=== PATIENT | female | born 1990 | race African-American/Black ===

== ENCOUNTER 2016-12-06 06:19 | Emergency (ER) | payer OTHER ==
[~2016-12-06] VITALS: Ht 162.6 cm; Wt 67.1 kg
[~2016-12-06 06:19] MED LIST: CIPR500T94 PO; METR500T PO
--- NOTE | 2016-12-06 06:38 | PHYS DOC ---
Past Medical History Past Medical History: No Pertinent History Past Surgical History: Additional Past Surgical Histo: x3 c-sections Alcohol Use: None Drug Use: None Adult General Chief Complaint Chief Complaint: ABDOMINAL PAIN HPI HPI Patient is a 26 year old F who presents with symptoms of UTI. Patient states she's had increased urgency to go the bathroom and lower back pain that has progressively gotten worse since Sunday. Patient states this feels like previous UTIs. Patient states low-grade fevers at home however never took her temperature. Patient denies any other symptoms. Patient has no other complaints. Review of Systems Review of Systems GEN: Denies fevers, chills, sweats HEENT: Denies blurred vision, sore throat CV: Denies chest pain RESP: Denies shortness of air, cough GI: Denies n/v/d : Increased urinary frequency with lower back pain NEURO: Denies confusion, dizziness MSK: Denies weakness, joint pain/swelling Current Medications Current Medications Current Medications Medications (Trade) Dose Ordered Sig/Crissy Start Time Stop Time Status Last Admin Dose Admin Ceftriaxone Sodium 50 ml @ 100 mls/hr 1X ONCE 12/06/16 07:30 12/06/16 07:59 DC Ondansetron HCl (Zofran) 4 mg 1X ONCE 12/06/16 07:15 12/06/16 07:16 DC 12/06/16 06:55 4 MG Sodium Chloride 1,000 ml @ 1,000 mls/hr 1X ONCE 12/06/16 07:00 12/06/16 07:59 DC 12/06/16 06:48 1,000 MLS/HR Allergies Allergies Allergies Coded Allergies Type Severity Reaction Last Updated Verified No Known Drug Allergies 12/28/13 No Physical Exam Physical Exam GEN.: No apparent distress. Alert and oriented. HEENT: Head is normocephalic, atraumatic NECK: Supple. LUNGS: CTAB. HEART: RRR, S1, S2 present. Peripheral pulses intact ABDOMEN: Soft, nontender. Positive bowel sounds. EXTREMITIES: Without any cyanosis. NEUROLOGIC: Normal speech, normal tone PSYCHIATRIC: Normal affect, normal mood. SKIN: No ulcerations BACK: Mild left CVA tenderness Current Patient Data Vital Signs Vital Signs Date Time Temp Pulse Resp B/P (MAP) Pulse Ox O2 Delivery O2 Flow Rate FiO2 12/06/16 07:37 104 18 108/65 (79) 98 Room Air 12/06/16 06:27 100.1 100.1 Lab Values Laboratory Tests Test 12/06/16 05:38 12/06/16 06:25 12/06/16 07:15 POC Urine HCG, Qualitative Hcg negative (Negative) Urine Collection Type Unknown Urine Color Yellow Urine Clarity Cloudy Urine pH 7.0 Urine Specific [place] 1.015 Urine Protein 100 mg/dL (NEG-TRACE) Urine Glucose (UA) Negative mg/dL (NEG) Urine Ketones (Stick) Negative mg/dL (NEG) Urine Blood Large (NEG) Urine Nitrite Positive (NEG) Urine Bilirubin Negative (NEG) Urine Urobilinogen Dipstick 0.2 mg/dL (0.2 mg/dL) Urine Leukocyte Esterase Large (NEG) Urine RBC 3-5 /HPF (0-2) Urine WBC Tntc /HPF (0-4) Urine Squamous Epithelial Cells Few /LPF Urine Bacteria Many /HPF (0-FEW) White Blood Count 12.2 x10^3/uL (4.0-11.0) H Red Blood Count 3.93 x10^6/uL (3.50-5.40) Hemoglobin 11.5 g/dL (12.0-15.5) L Hematocrit 34.1 % (36.0-47.0) L Mean Corpuscular Volume 87 fL (79-100) Mean Corpuscular Hemoglobin 29 pg (25-35) Mean Corpuscular Hemoglobin Concent 34 g/dL (31-37) Red Cell Distribution Width 12.7 % (11.5-14.5) Platelet Count 298 x10^3/uL (140-400) Neutrophils (%) (Auto) 83 % (31-73) H Lymphocytes (%) (Auto) 10 % (24-48) L Monocytes (%) (Auto) 7 % (0-9) Eosinophils (%) (Auto) 0 % (0-3) Basophils (%) (Auto) 0 % (0-3) Neutrophils # (Auto) 10.1 x10^3uL (1.8-7.7) H Lymphocytes # (Auto) 1.2 x10^3/uL (1.0-4.8) Monocytes # (Auto) 0.8 x10^3/uL (0.0-1.1) Eosinophils # (Auto) 0.1 x10^3/uL (0.0-0.7) Basophils # (Auto) 0.0 x10^3/uL (0.0-0.2) Sodium Level 142 mmol/L (136-145) Potassium Level 3.5 mmol/L (3.5-5.1) Chloride Level 108 mmol/L (98-107) H Carbon Dioxide Level 25 mmol/L (21-32) Anion Gap 9 (6-14) Blood Urea Nitrogen 7 mg/dL (7-20) Creatinine 0.7 mg/dL (0.6-1.0) Estimated GFR (Cockcroft-Gault) 123.4 Glucose Level 104 mg/dL (70-99) H Calcium Level 7.9 mg/dL (8.5-10.1) L Laboratory Tests 12/06/16 07:15 Laboratory Tests 12/06/16 07:15 EKG EKG [] Radiology/Procedures Radiology/Procedures [] Course & Med Decision Making Course & Med Decision Making Pertinent Labs and Imaging studies reviewed. (See chart for details) ED course: Patient was seen and examined emergency room CBC, BMP, UA, urine ordered 0801: Patient was updated on her UA results and plan to discharge home with oral antibiotics patient states she gets yeast infections and would like Diflucan MDM: After reviewing the chart, CC/HPI/PMH, physical exam, [lab results], I do not believe the patient has a severe bacterial infection warranting further workup and/or admission at this time. I believe the patient is stable for discharge with oral antibiotics and short-term follow-up with PCP for non-complicated UTI. Patient is comfortable going home. Additional verbal discharge instructions were provided to the patient and that if symptoms get worse or any new symptoms arise that are worrisome to the patient she is to return to the emergency room immediately [] Dragon Disclaimer Dragon Disclaimer This electronic medical record was generated, in whole or in part, using a voice recognition dictation system. Departure Departure Impression: Primary Impression: UTI (urinary tract infection) Disposition: 01 HOME, SELF-CARE Condition: IMPROVED Referrals: SHAWNA ARROYO MD (PCP) Patient Instructions: Urinary Tract Infection, Flrx-er-Yrbu Additional Instructions: Please follow up with your family physician next one to 2 days and return if symptoms increase Scripts Fluconazole (Diflucan) 100 Mg Tablet 100 MG FT 1X for 1 Day, #1 TAB Prov: DOUGIE LOZA DO 12/06/16 Cephalexin (KEFLEX) 500 Mg Capsule 1 CAP PO TID for 5 Days, #15 CAP Prov: DOUGIE LOZA DO 12/06/16 DOUGIE LOZA DO Dec 06, 2016 06:38
[2016-12-06] MEDS ORDERED: IV NORMAL SALINE 1000ML BAG 1,000 ML IV ONE (07:00)
[2016-12-06 07:12] LABS: BACTERIA,URINE MANY /HPF (0-FEW); BILIRUBIN,URINE NEGATIVE (NEG); GLUCOSE,URINE NEGATIVE (NEG); NITRITE,URINE POSITIVE (NEG); PROTEIN,URINE 100 mg/dL (NEG-TRACE); SQUAMOUS EPITHELIAL CELL,UR FEW /LPF; UROBILINOGEN,URINE 0.2 mg/dL (0.2 mg/dL); WBC,URINE TNTC /HPF (0-4)
[2016-12-06] MEDS ORDERED: ONDANSETRON PF 4 MG/2 ML VIAL. IV ONE (07:15)
[2016-12-06 07:45] LABS: CALCIUM 7.9 mg/dL (8.5-10.1); CREATININE 0.7 mg/dL (0.6-1.0); GFR 123.4; POTASSIUM 3.5 mmol/L (3.5-5.1)
[2016-12-06 07:51] LABS: BASO % 0 % (0-3); EOS % 0 % (0-3); HEMATOCRIT 34.1 % (36.0-47.0); HEMOGLOBIN 11.5 g/dL (12.0-15.5); LYMPH # 1.2 x10^3/uL (1.0-4.8); LYMPH % 10 % (24-48); MEAN CORPUSCULAR HEMOGLOBIN 29 pg (25-35); MEAN CORPUSCULAR HGB CONC 34 g/dL (31-37); MEAN CORPUSCULAR VOLUME 87 fL (79-100); MONO % 7 % (0-9); NEUT % 83 % (31-73); PLATELET COUNT 298 x10^3/uL (140-400); RED BLOOD COUNT 3.93 x10^6/uL (3.50-5.40); RED CELL DISTRIBUTION WIDTH 12.7 % (11.5-14.5); WHITE BLOOD COUNT 12.2 x10^3/uL (4.0-11.0)
[2016-12-06] MEDS ORDERED: FLUC100T FT (08:10)
[2016-12-06] MEDS ORDERED: CEPH-264 PO (08:10)
[2016-12-06 08:43] VITALS: BP 112/67
--- NOTE | 2016-12-10 07:33 | VNOTE ---
CALL BACK NOTE CALL BACK Microbiology 12/06/16 Urine Culture - Final, Complete 12/06/16 Urine Culture Result 1 (MORRIS) - Final, Complete 12/06/16 Antimicrobic Susceptibility - Final, Complete Urine culture positive for e. coli. Patient was placed on Keflex at discharge. According to the culture and sensitivity this infection is sensitive to Keflex. ADELINA MCMANUS APRN Dec 10, 2016 07:33
== END 2016-12-06 08:52 | disposition home or self-care (01) ==
LOC: ER 06:19
DX: N39.0 Urinary tract infection, site not specified (principal); Z87.440 Personal history of urinary (tract) infections
CPT/HCPCS: 36415; 80048; 81001; 81025; 85025; 87086; 87186; 96361; 96365; 96375; 99284; J0690; J2405; J7030

== ENCOUNTER 2017-02-18 17:50 | Emergency (ER) | payer OTHER ==
[~2017-02-18] VITALS: Ht 162.6 cm; Wt 67.1 kg
[~2017-02-18 17:50] MED LIST changes: +CEPH-264 PO; +FLUC100T FT
[2017-02-18 18:00] VITALS: BP 133/71
[2017-02-18 18:31] LABS: BILIRUBIN,URINE NEGATIVE (NEG); GLUCOSE,URINE NEGATIVE (NEG); NITRITE,URINE POSITIVE (NEG); PROTEIN,URINE NEGATIVE (NEG-TRACE); UROBILINOGEN,URINE 0.2 mg/dL (0.2 mg/dL)
--- NOTE | 2017-02-18 18:40 | PHYS DOC ---
Past Medical History Past Medical History: No Pertinent History Past Surgical History: Additional Past Surgical Histo: x3 c-sections Alcohol Use: None Drug Use: None Adult General Chief Complaint Chief Complaint: ABDOMINAL PAIN [facility] HPI Patient is a pleasant sexually active 26-year-old female with a 003 presents today with UTI symptoms admitted crampy abdominal pain that began several months ago. She's been seen here in our emergency department for recurrent UTIs as well as by her primary PILOT SUBMERSIBLE. sHe presents again today for rapid lower abdominal pain with urgency frequency and dysuria. She had sexual transmitted diseases many years ago and is presently sexually active with using condoms and he believes that there is no relationship to her symptoms and sexual activity. Patient denies any vaginal trauma, rectal trauma, denies any fevers, chills, diarrhea, nausea and vomiting. 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 Patient's pain is intermittent and present only with urination. Review of Systems Review of Systems Constitutional: Denies fever or chills [] Eyes: Denies change in visual acuity, redness, or eye pain [] HENT: Denies nasal congestion or sore throat [] Respiratory: Denies cough or shortness of breath [] Cardiovascular: No additional information not addressed in HPI [] GI: Planes of lower abdominal pain without nausea vomiting diarrhea or loose stools denies any constipation :patient has dysuria urgency or frequency without hematuria Musculoskeletal: She has had mild lower back pain without joint pain[] Integument: Denies rash or skin lesions [] Neurologic: Denies headache, focal weakness or sensory changes [] Endocrine: Denies polyuria or polydipsia [] All other systems were reviewed and found to be within normal limits, except as documented in this note. Allergies Allergies Allergies Coded Allergies Type Severity Reaction Last Updated Verified No Known Drug Allergies 12/28/13 No Physical Exam Physical Exam Vital signs recorded on the chart within normal limits Constitutional: Well developed, well nourished, no acute distress, non-toxic appearance. [] Cardiovascular:Heart rate regular rhythm, no murmur [] Lungs & Thorax: Bilateral breath sounds clear to auscultation [] Abdomen: Bowel sounds normal, soft, no tenderness, no masses, no pulsatile masses. No guarding rebound or organomegaly specifically no Maldonado's or McBurney 's point tenderness palpation[] Back: No tenderness, no CVA tenderness. [] Neurologic: Alert and oriented X 3, Psychologic: Affect normal, judgement normal, mood normal. [] Current Patient Data Vital Signs Vital Signs Date Time Temp Pulse Resp B/P (MAP) Pulse Ox O2 Delivery O2 Flow Rate FiO2 02/18/17 18:00 98.6 87 20 133/71 (91) 99 Room Air 98.6 Lab Values Laboratory Tests Test 02/18/17 18:00 02/18/17 18:03 Urine Collection Type Unknown Urine Color Yellow Urine Clarity Cloudy Urine pH 7.0 Urine Specific [place] >=1.030 Urine Protein Negative mg/dL (NEG-TRACE) Urine Glucose (UA) Negative mg/dL (NEG) Urine Ketones (Stick) Negative mg/dL (NEG) Urine Blood Negative (NEG) Urine Nitrite Positive (NEG) Urine Bilirubin Negative (NEG) Urine Urobilinogen Dipstick 0.2 mg/dL (0.2 mg/dL) Urine Leukocyte Esterase Moderate (NEG) Urine RBC 0 /HPF (0-2) Urine WBC 5-10 /HPF (0-4) Urine Squamous Epithelial Cells Many /LPF Urine Bacteria Many /HPF (0-FEW) Urine Mucus Marked /LPF POC Urine HCG, Qualitative Hcg negative (Negative) EKG EKG [] Radiology/Procedures Radiology/Procedures [] Course & Med Decision Making Course & Med Decision Making Pertinent Labs and Imaging studies reviewed. (See chart for details) My abdominal pain differential includes but not limited to ectopic , UTI, pyonephritis, cholecystitis, cholelithiasis, pancreatitis, appendicitis, small bowel obstruction, large bowel obstruction, diverticulosis, Diverticulum, intussusception, volvulus, irritable bowel disease, Crohn's or ulcerative colitis, considered upon arrival She really has no abdominal pain on evaluation patient's urine test is negative, and urinalysis is clear for signs of inflammation and infection. []Patient's symptoms and history are concerning for recurrent UTI. Given patient 's prior C-sections and 3 pregnancies I believe there may be an anatomic abnormality causing a delay or partial obstruction to patient's urinary emptying. Patient would benefit from urogynecology evaluation for possible cystoscopy or chronic antibiotic therapy for chronic UTIs. At this point I'll provide her with a course of pain medications and a course of Macrobid and referral back PILOT SUBMERSIBLE. Dragon Disclaimer Dragon Disclaimer This electronic medical record was generated, in whole or in part, using a voice recognition dictation system. Departure Departure Impression: Primary Impression: UTI (urinary tract infection) Disposition: 01 HOME, SELF-CARE Condition: STABLE Referrals: SHAWNA ARROYO MD (PCP) Patient Instructions: Urinary Tract Infection Additional Instructions: discharge: I've spoken with the patient and/or caregivers. I've explained the patient's condition, diagnosis and treatment plan based on information available to me at this time. I've answered the patient's and/or caregivers questions and addressed any concerns. The patient and/or caregivers have a good understanding the patient's diagnosis, condition and treatment plan as can be expected at this point. Vital signs have been stabilized. The patient's condition is stable for discharge from the emergency department. The patient will pursue further outpatient evaluation with her primary care provider or other designated consulting physician as outlined in the discharge instructions. Patient and/or caregivers are agreeable to this plan of care and follow-up instructions have been explained in detail. The patient and/or caregivers have received these instructions in written format and expressed understanding of these discharge instructions. The patient and her caregivers are aware that if any significant change in condition or worsening of symptoms should prompt him to immediately return to this of the closest emergency department. If an emergent department is not readily available I would encourage him to call 911. Scripts Phenazopyridine Hcl (PYRIDIUM) 200 Mg Tablet 200 MG PO TID for 3 Days, #9 TAB Prov: MAI SAMPSON MD 02/18/17 Nitrofurantoin Monohyd/M-Cryst (MACROBID 100 MG CAPSULE) 100 Mg Capsule 1 CAP PO BID, #20 CAP Prov: MAI SAMPSON MD 02/18/17 Hydrocodone Bit/Acetaminophen (HYDROCODONE-APAP 5-325 ) 1 Each Tablet 1-2 TAB PO PRN Q6HRS Y for PAIN for 5 Days, #10 TAB 0 Refills Prov: MAI SAMPSON MD 02/18/17 MAI SAMPSON MD Feb 18, 2017 18:40
[2017-02-18 18:44] LABS: BACTERIA,URINE MANY /HPF (0-FEW); RBC,URINE 0 /HPF (0-2); SQUAMOUS EPITHELIAL CELL,UR MANY /LPF
[2017-02-18] MEDS ORDERED: NITR100C62 PO (18:52)
[2017-02-18] MEDS ORDERED: HYDR-2758 PO (18:52)
[2017-02-18] MEDS ORDERED: PHEN-318 PO (18:52)
== END 2017-02-18 19:04 | disposition home or self-care (01) ==
LOC: ER 17:50
DX: N39.0 Urinary tract infection, site not specified (principal)
CPT/HCPCS: 81001; 81025; 87086; 87186; 99284

== ENCOUNTER 2017-04-06 18:36 | Emergency (ER) | payer OTHER ==
[2017-04-06 19:50] LABS: ADD MAN DIFF? NO
[2017-04-06 19:52] LABS: BASO # 0.1 x10^3/uL (0.0-0.2); BASO % 1 % (0-3); EOS # 0.1 x10^3/uL (0.0-0.7); EOS % 2 % (0-3); HEMATOCRIT 41.3 % (36.0-47.0); HEMOGLOBIN 13.9 g/dL (12.0-15.5); LYMPH # 3.5 x10^3/uL (1.0-4.8); LYMPH % 36 % (24-48); MEAN CORPUSCULAR HEMOGLOBIN 30 pg (25-35); MEAN CORPUSCULAR HGB CONC 34 g/dL (31-37); MEAN CORPUSCULAR VOLUME 89 fL (79-100); MONO # 0.7 x10^3/uL (0.0-1.1); MONO % 7 % (0-9); NEUT # 5.3 x10^3uL (1.8-7.7); NEUT % 55 % (31-73); PLATELET COUNT 433 x10^3/uL (140-400); RED BLOOD COUNT 4.63 x10^6/uL (3.50-5.40); RED CELL DISTRIBUTION WIDTH 13.4 % (11.5-14.5); WHITE BLOOD COUNT 9.7 x10^3/uL (4.0-11.0)
== END 2017-04-06 22:01 | disposition home or self-care (01) ==
LOC: ER 18:36
DX: N99.820 Postprocedural hemorrhage of a genitourinary system organ or structure following a genitourinary system procedure (principal); Z98.890 Other specified postprocedural states
CPT/HCPCS: 36415; 76856; 84702; 85025; 99285-25

== ENCOUNTER 2017-08-07 09:41 | Emergency (ER) | payer SELFPAY, OTHER, BC ==
[2017-08-07 10:14] LABS: URINE HCG POC HCG NEGATIVE (Negative)
[2017-08-07 10:18] LABS: BILIRUBIN,URINE NEGATIVE (NEG); COLOR,URINE YELLOW; GLUCOSE,URINE NEGATIVE (NEG); NITRITE,URINE NEGATIVE (NEG); PROTEIN,URINE NEGATIVE (NEG-TRACE)
[2017-08-07 10:38] LABS: BACTERIA,URINE MOD /HPF (0-FEW); CLARITY,URINE HAZY; SQUAMOUS EPITHELIAL CELL,UR MOD /LPF
[2017-08-07 11:09] LABS: ADD MAN DIFF? NO
[2017-08-07 11:20] LABS: ANION GAP 10 (6-14); BLOOD UREA NITROGEN 13 mg/dL (7-20); BUN/CREATININE RATIO 16 (6-20); CALCIUM 8.9 mg/dL (8.5-10.1); CARBON DIOXIDE 26 mmol/L (21-32); CHLORIDE 103 mmol/L (98-107); CREATININE 0.8 mg/dL (0.6-1.0); GFR 104.9; GLUCOSE 92 mg/dL (70-99); POTASSIUM 3.8 mmol/L (3.5-5.1); SODIUM 139 mmol/L (136-145)
[2017-08-07 11:21] LABS: BASO % 1 % (0-3); EOS # 0.1 x10^3/uL (0.0-0.7); EOS % 1 % (0-3); HEMATOCRIT 37.5 % (36.0-47.0); LYMPH # 2.1 x10^3/uL (1.0-4.8); LYMPH % 28 % (24-48); MEAN CORPUSCULAR HEMOGLOBIN 30 pg (25-35); MEAN CORPUSCULAR HGB CONC 35 g/dL (31-37); MEAN CORPUSCULAR VOLUME 88 fL (79-100); MONO # 0.4 x10^3/uL (0.0-1.1); MONO % 6 % (0-9); NEUT # 4.9 x10^3uL (1.8-7.7); NEUT % 65 % (31-73); PLATELET COUNT 366 x10^3/uL (140-400); RED BLOOD COUNT 4.27 x10^6/uL (3.50-5.40); RED CELL DISTRIBUTION WIDTH 12.5 % (11.5-14.5); WHITE BLOOD COUNT 7.5 x10^3/uL (4.0-11.0)
[2017-08-07 11:26] LABS: ALBUMIN/GLOBULIN RATIO 0.9 (1.0-1.7); ALK PHOS 65 U/L (46-116); ALT (SGPT) 15 U/L (14-59); AST (SGOT) 13 U/L (15-37); TOTAL BILIRUBIN 0.7 mg/dL (0.2-1.0); TOTAL PROTEIN 8.4 g/dL (6.4-8.2)
[2017-08-07] MEDS: cefTRIAXone IM 250 MG VIAL IM (11:39)
[2017-08-08 17:18] LABS: CHLAMYDIA PROBE Negative (Negative); GC PROBE Negative (Negative)
== END 2017-08-07 12:49 | disposition home or self-care (01) ==
LOC: ER 09:41
DX: N72 Inflammatory disease of cervix uteri (principal); F17.210 Nicotine dependence, cigarettes, uncomplicated
CPT/HCPCS: 36415; 80053; 81001; 81025; 85025; 86900; 86901; 87491; 87591; 96372; 99284; J0696; Q0111

== ENCOUNTER 2017-10-13 14:06 | Emergency (ER) | payer BC ==
[2017-10-13 14:18] LABS: URINE HCG POC HCG NEGATIVE (Negative)
[2017-10-13 14:47] LABS: BILIRUBIN,URINE NEGATIVE (NEG); CLARITY,URINE CLEAR; GLUCOSE,URINE NEGATIVE (NEG); NITRITE,URINE NEGATIVE (NEG); PROTEIN,URINE NEGATIVE (NEG-TRACE); UROBILINOGEN,URINE 0.2 mg/dL (0.2 mg/dL)
[2017-10-13 14:48] LABS: ADD MAN DIFF? NO
[2017-10-13 14:49] LABS: BASO # 0.1 x10^3/uL (0.0-0.2); BASO % 1 % (0-3); EOS # 0.1 x10^3/uL (0.0-0.7); EOS % 1 % (0-3); HEMATOCRIT 36.7 % (36.0-47.0); HEMOGLOBIN 12.4 g/dL (12.0-15.5); LYMPH # 2.3 x10^3/uL (1.0-4.8); LYMPH % 35 % (24-48); MEAN CORPUSCULAR HEMOGLOBIN 30 pg (25-35); MEAN CORPUSCULAR HGB CONC 34 g/dL (31-37); MEAN CORPUSCULAR VOLUME 88 fL (79-100); MONO # 0.5 x10^3/uL (0.0-1.1); MONO % 7 % (0-9); NEUT # 3.6 x10^3uL (1.8-7.7); NEUT % 56 % (31-73); PLATELET COUNT 346 x10^3/uL (140-400); RED BLOOD COUNT 4.18 x10^6/uL (3.50-5.40); RED CELL DISTRIBUTION WIDTH 12.9 % (11.5-14.5); WHITE BLOOD COUNT 6.5 x10^3/uL (4.0-11.0)
[2017-10-13 14:51] LABS: COLOR,URINE STRAW
[2017-10-13 14:53] LABS: BACTERIA,URINE MODERATE /HPF (0-FEW); RBC,URINE RARE /HPF (0-2); SQUAMOUS EPITHELIAL CELL,UR MANY /LPF
[2017-10-13 14:54] LABS: BARBITURATES NEG (NEG); BENZODIAZEPINES NEG (NEG); CANNABINOIDS NEG (NEG); COCAINE NEG (NEG); METHADONE NEG (NEG); OPIATES NEG (NEG); PHENCYCLIDINE NEG (NEG)
[2017-10-13 15:00] LABS: AMPHETAMINE/METHAMPHETAMINE NEG (NEG); ETHANOL, URINE NEG (NEG)
[2017-10-13 15:03] LABS: ANION GAP 11 (6-14); BLOOD UREA NITROGEN 9 mg/dL (7-20); BUN/CREATININE RATIO 11 (6-20); CALCIUM 8.4 mg/dL (8.5-10.1); CARBON DIOXIDE 25 mmol/L (21-32); CHLORIDE 104 mmol/L (98-107); CREATININE 0.8 mg/dL (0.6-1.0); GFR 104.9; GLUCOSE 82 mg/dL (70-99); POTASSIUM 3.6 mmol/L (3.5-5.1); SODIUM 140 mmol/L (136-145)
[2017-10-13 15:06] LABS: ETHANOL < 10 mg/dL (0-10)
[2017-10-13 15:10] LABS: ALBUMIN 3.9 g/dL (3.4-5.0); ALBUMIN/GLOBULIN RATIO 1.1 (1.0-1.7); ALK PHOS 58 U/L (46-116); ALT (SGPT) 14 U/L (14-59); AST (SGOT) 15 U/L (15-37); LIPASE 164 U/L (73-393); TOTAL BILIRUBIN 0.8 mg/dL (0.2-1.0); TOTAL PROTEIN 7.5 g/dL (6.4-8.2)
[2017-10-16 20:10] LABS: CHLAMYDIA PROBE Negative (Negative); GC PROBE Negative (Negative)
== END 2017-10-13 17:16 | disposition home or self-care (01) ==
LOC: ER 14:06
DX: N76.0 Acute vaginitis (principal); B96.89 Other specified bacterial agents as the cause of diseases classified elsewhere; R53.83 Other fatigue; N93.8 Other specified abnormal uterine and vaginal bleeding; Z98.890 Other specified postprocedural states
CPT/HCPCS: 36415; 76856; 80053; 80307; 81001; 81025; 83690; 85025; 87086; 87491; 87591; 99285-25; G0480; Q0111

== ENCOUNTER 2018-02-03 11:01 | Emergency (ER) | payer BC ==
[~2018-02-03] VITALS: Ht 162.6 cm; Wt 62.6 kg
[~2018-02-03 11:01] MED LIST changes: +DOXY100T PO; +FLUC150T PO; +HYDR-2758 PO; +NITR100C62 PO; +PHEN-318 PO
[2018-02-03 11:05] VITALS: BP 101/63
--- NOTE | 2018-02-03 11:48 | PHYS DOC ---
Past Medical History Past Medical History: No Pertinent History Additional Past Medical Histor: Irregular vaginal bleeding Past Surgical History: Additional Past Surgical Histo: x3 c-sections, D&C Alcohol Use: Occasionally Drug Use: None Adult General Chief Complaint Chief Complaint: VAGINAL PROBLEM HPI HPI Patient is a 27 year old female who presents with vaginal discharge and concern for bacterial vaginosis for 2 weeks. Patient denies any concerns for STDs. Denies any other complaints. Review of Systems Review of Systems Constitutional: Denies fever or chills [] GI: Denies abdominal pain, nausea, vomiting, bloody stools or diarrhea [] Reports vaginal discharge : Denies dysuria or hematuria [] Musculoskeletal: Denies back pain or joint pain [] Integument: Denies rash or skin lesions [] Neurologic: Denies headache, focal weakness or sensory changes [] All other systems were reviewed and found to be within normal limits, except as documented in this note. Allergies Allergies Allergies Coded Allergies Type Severity Reaction Last Updated Verified No Known Drug Allergies 12/28/13 No Physical Exam Physical Exam Constitutional: Well developed, well nourished, no acute distress, non-toxic appearance. [] Abdomen: Bowel sounds normal, soft, no tenderness, no masses, no pulsatile masses. [] Pelvic exam External pelvic appears normal, cervix is closed, no CMT, no adnexal tenderness , trace amount of white discharge in the vaginal vault Skin: Warm, dry, no erythema, no rash. [] Back: No tenderness, no CVA tenderness. [] Extremities: No tenderness, no cyanosis, no clubbing, ROM intact, no edema. [] Neurologic: Alert and oriented X 3, normal motor function, normal sensory function, no focal deficits noted. [] Psychologic: Affect normal, judgement normal, mood normal. [] Current Patient Data Vital Signs Vital Signs Date Time Temp Pulse Resp B/P (MAP) Pulse Ox O2 Delivery O2 Flow Rate FiO2 02/03/18 11:05 99.1 80 18 101/63 (76) Room Air 98.0 99.1 Lab Values Laboratory Tests Test 02/03/18 11:07 02/03/18 12:12 Urine Collection Type Unknown Urine Color Yellow Urine Clarity Clear Urine pH 5.5 Urine Specific [place] >=1.030 Urine Protein Negative mg/dL (NEG-TRACE) Urine Glucose (UA) Negative mg/dL (NEG) Urine Ketones (Stick) Negative mg/dL (NEG) Urine Blood Small (NEG) Urine Nitrite Negative (NEG) Urine Bilirubin Negative (NEG) Urine Urobilinogen Dipstick 0.2 mg/dL (0.2 mg/dL) Urine Leukocyte Esterase Small (NEG) Urine RBC Occ /HPF (0-2) Urine WBC Occ /HPF (0-4) Urine Squamous Epithelial Cells Mod /LPF Urine Bacteria Few /HPF (0-FEW) POC Urine HCG, Qualitative Hcg negative (Negative) Microbiology 02/03/18 Wet Prep - Final, Complete EKG EKG [] Radiology/Procedures Radiology/Procedures [] Course & Med Decision Making Course & Med Decision Making Pertinent Labs and Imaging studies reviewed. (See chart for details) This is a 27-year-old female patient presenting to the ED today with vaginal discharge for 2 weeks. Negative urine hCG, urine analysis appears contaminated, patient does not have any urgency frequency or dysuria. Wet prep noted for bacterial vaginosis, discharged with Flagyl. Dragon Disclaimer Dragon Disclaimer This electronic medical record was generated, in whole or in part, using a voice recognition dictation system. Departure Departure Impression: Primary Impression: Bacterial vaginosis Disposition: HOME, SELF-CARE Condition: STABLE Referrals: NO PCP (PCP) Follow-up with your doctor in 1-2 weeks Patient Instructions: Bacterial Vaginosis, [id number] Additional Instructions: You were evaluated in the emergency room and noted to have bacterial vaginosis, we put you on antibiotics, ensure you complete them. Follow-up with your doctor in 1-2 weeks. Come back to the ED at any point symptoms worsen. Scripts Fluconazole (DIFLUCAN) 150 Mg Tablet 1 TAB PO ONCE, #1 TAB 1 Refill Prov: BELA ACEVEDO [employer] PROJECT MANAGER 02/03/18 Metronidazole (FLAGYL) 500 Mg Tablet 1 TAB PO BID, #14 TAB Prov: BELA ACEVEDO [employer] PROJECT MANAGER 02/03/18 BELA ACEVEDO [employer] PROJECT MANAGER Feb 03, 2018 11:48
[2018-02-03 12:00] LABS: BILIRUBIN,URINE NEGATIVE (NEG); CLARITY,URINE CLEAR; COLOR,URINE YELLOW; NITRITE,URINE NEGATIVE (NEG); PH,URINE 5.5; PROTEIN,URINE NEGATIVE (NEG-TRACE); UROBILINOGEN,URINE 0.2 mg/dL (0.2 mg/dL)
[2018-02-03 12:01] LABS: BACTERIA,URINE FEW /HPF (0-FEW); RBC,URINE OCC /HPF (0-2); SQUAMOUS EPITHELIAL CELL,UR MOD /LPF; WBC,URINE OCC /HPF (0-4)
[2018-02-03] MEDS ORDERED: METR500T PO (12:24)
[2018-02-03] MEDS ORDERED: FLUC150T PO (12:32)
[2018-02-04 15:27] LABS: GC PROBE Negative (Negative)
== END 2018-02-03 12:35 | disposition home or self-care (01) ==
LOC: ER 11:01
DX: N76.0 Acute vaginitis (principal); B96.89 Other specified bacterial agents as the cause of diseases classified elsewhere; Z98.890 Other specified postprocedural states
CPT/HCPCS: 36415; 81001; 81025; 87491; 87591; 99284; Q0111; 87086

== ENCOUNTER 2018-03-13 13:21 | Emergency (ER) | payer BC ==
[~2018-03-13] VITALS: Ht 162.6 cm; Wt 65.8 kg
[~2018-03-13 13:21] MED LIST changes: -HYDR-2758 PO; +HYDR-2761 PO
[2018-03-13 13:45] VITALS: BP 103/58
[2018-03-13] MEDS ORDERED: PROC10TA57 PO (14:26)
--- NOTE | 2018-03-13 14:27 | PHYS DOC ---
Past Medical History Past Medical History: No Pertinent History Additional Past Medical Histor: Irregular vaginal bleeding Past Surgical History: Additional Past Surgical Histo: x3 c-sections, D&C Alcohol Use: Occasionally Drug Use: None Adult General Chief Complaint Chief Complaint: HEADACHE HPI HPI Patient is a 27 year old female who presents with chronic migraines since 2010 states over the last 2 months her migraines gotten worse. She states that it's all in the front of her head that is hurting and she gets 4-5 a day in the coming go. Patient states she will get some nausea and light sensitivity. Patient states she's been taking ibuprofen, Tylenol, Excedrin Migraine. Patient states she took stay was Excedrin Migraine once at 7:30 this morning and again at 1300 this afternoon. Review of Systems Review of Systems Constitutional: Denies fever or chills [] Eyes: Denies change in visual acuity, redness, or eye pain [] HENT: Headache. Denies nasal congestion or sore throat [] Respiratory: Denies cough or shortness of breath [] Cardiovascular: No additional information not addressed in HPI [] GI: Denies abdominal pain, nausea, vomiting, bloody stools or diarrhea [] : Denies dysuria or hematuria [] Musculoskeletal: Denies back pain or joint pain [] Integument: Denies rash or skin lesions [] Neurologic: headache, denies focal weakness or sensory changes [] Endocrine: Denies polyuria or polydipsia [] All other systems were reviewed and found to be within normal limits, except as documented in this note. Current Medications Current Medications Current Medications Medications (Trade) Dose Ordered Sig/Crissy Start Time Stop Time Status Last Admin Dose Admin Prochlorperazine Edisylate (Compazine) 10 mg 1X ONCE 03/13/18 14:30 03/13/18 14:33 DC 03/13/18 14:38 10 MG Allergies Allergies Allergies Coded Allergies Type Severity Reaction Last Updated Verified No Known Drug Allergies 12/28/13 No Physical Exam Physical Exam Constitutional: Well developed, well nourished, no acute distress, non-toxic appearance. [] HENT: Normocephalic, atraumatic, bilateral external ears normal, oropharynx moist, no oral exudates, nose normal. [] Eyes: PERRLA, EOMI, conjunctiva normal, no discharge. [] Neck: Normal range of motion, no tenderness, supple, no stridor. [] Cardiovascular:Heart rate regular rhythm, no murmur [] Lungs & Thorax: Bilateral breath sounds clear to auscultation [] Abdomen: Bowel sounds normal, soft, no tenderness, no masses, no pulsatile masses. [] Skin: Warm, dry, no erythema, no rash. [] Back: No tenderness, no CVA tenderness. [] Extremities: No tenderness, no cyanosis, no clubbing, ROM intact, no edema. [] Neurologic: Alert and oriented X 3, normal motor function, normal sensory function, no focal deficits noted. [] Psychologic: Affect normal, judgement normal, mood normal. [] Current Patient Data Vital Signs Vital Signs Date Time Temp Pulse Resp B/P (MAP) Pulse Ox O2 Delivery O2 Flow Rate FiO2 03/13/18 13:45 98.2 78 20 103/58 (73) 99 Room Air 98.2 Lab Values Laboratory Tests Test 03/13/18 13:49 POC Urine HCG, Qualitative Hcg negative (Negative) EKG EKG [] Radiology/Procedures Radiology/Procedures [] Course & Med Decision Making Course & Med Decision Making Patient is a 27 year old female who presents with chronic migraines since 2010 states over the last 2 months her migraines gotten worse. She states that it's all in the front of her head that is hurting and she gets 4-5 a day in the coming go. Patient states she will get some nausea and light sensitivity. Patient states she's been taking ibuprofen, Tylenol, Excedrin Migraine. Patient states she took stay was Excedrin Migraine once at 7:30 this morning and again at 1300 this afternoon. Patient states that she is not seen a doctor and her primary care doctor. She has no known drug allergies. She has a history of migraines, bronchitis, UTI, STD, BV, uterine bleeding. PERRLA. Neurologically intact. Denies any focal weaknesses or numbness or tingling. She denies any shortness of breath or chest pain. Alert and oriented. Skin is pink warm and dry. Hematuria with steady gait. Afebrile. Vital signs are 98.2, and 70 heart rate, 20 respirations, 103/58, 99% on room air. She is given an IM dose of Compazine and she is artery taken Excedrin about an hour prior to arrival. Patient will be given a prescription for Compazine and take the Excedrin Migraine with the Compazine. I told patient that she must call her PCP tomorrow if his headaches are becoming more frequent. Patient states that over symptoms any headaches are the same as what she's been having there is nothing new. Patient denies these being the worst headaches of her life. Patient speaks in full clear sentences. Patient denies any ear pain or ear congestion or sinus congestion. Patient denies any current illness. Staff Physician Addendum: I was working in the ER during the course of this patient's visit. I was available for consultation as needed, but I was not directly involved in the care of this patient. Dragon Disclaimer Dragon Disclaimer This electronic medical record was generated, in whole or in part, using a voice recognition dictation system. Departure Departure Impression: Primary Impression: Migraine Disposition: HOME, SELF-CARE Condition: STABLE Referrals: NO PCP (PCP) Patient Instructions: Migraine Headache Additional Instructions: Follow up with primary care. Call tomorrow or today. Continue taking Excedrin migraine with compazine together as needed for pain. Scripts Prochlorperazine Maleate (Compazine) 10 Mg Tablet 10 MG PO Q6-8HRS PRN for MIGRAINE HEADACHE for 10 Days, TAB Prov: ADELINA GRUBER APRN 03/13/18 Problem Qualifiers Primary Impression: Migraine Migraine type: unspecified Status migrainosus presence: without status migrainosus Intractability: not intractable Qualified Codes: G43.909 - Migraine, unspecified, not intractable, without status migrainosus ADELINA GRUBER APRN Mar 13, 2018 14:27 LANA LYN MD Mar 13, 2018 17:22
[2018-03-13] MEDS ORDERED: PROCHLORPERAZINE 10 MG/2 ML VIAL. IM ONE (14:30)
== END 2018-03-13 14:45 | disposition home or self-care (01) ==
LOC: ER 13:21
DX: G89.29 Other chronic pain (principal); G43.909 Migraine, unspecified, not intractable, without status migrainosus; H53.149 Visual discomfort, unspecified; Z98.890 Other specified postprocedural states
CPT/HCPCS: 81025; 96372; 99283; J0780

== ENCOUNTER 2018-07-25 21:07 | Emergency (ER) | payer SELFPAY ==
[~2018-07-25] VITALS: Ht 162.6 cm; Wt 69.4 kg
[~2018-07-25 21:07] MED LIST changes: +PROC10TA57 PO
[2018-07-25 21:10] VITALS: BP 115/66
[2018-07-25] MEDS ORDERED: DIAZ2TAB3 PO (21:44)
--- NOTE | 2018-07-25 21:44 | PHYS DOC ---
Past Medical History Past Medical History: Anxiety Additional Past Medical Histor: Irregular vaginal bleeding Past Surgical History: Additional Past Surgical Histo: x3 c-sections, D&C Alcohol Use: Occasionally Drug Use: None Adult General Chief Complaint Chief Complaint: ANXIETY/PANIC ATTACK [place] [employer] HPI Patient is a 28 year old [f__sex] who presents with [] Review of Systems Review of Systems Constitutional: Denies fever or chills [] Eyes: Denies change in visual acuity, redness, or eye pain [] HENT: Denies nasal congestion or sore throat [] Respiratory: Denies cough or shortness of breath [] Cardiovascular: No additional information not addressed in HPI [] GI: Denies abdominal pain, nausea, vomiting, bloody stools or diarrhea [] : Denies dysuria or hematuria [] Musculoskeletal: Denies back pain or joint pain [] Integument: Denies rash or skin lesions [] Neurologic: Denies headache, focal weakness or sensory changes [] Endocrine: Denies polyuria or polydipsia [] All other systems were reviewed and found to be within normal limits, except as documented in this note. Allergies Allergies Allergies Coded Allergies Type Severity Reaction Last Updated Verified No Known Drug Allergies 12/28/13 No Physical Exam Physical Exam Constitutional: Well developed, well nourished, no acute distress, non-toxic appearance. [] HENT: Normocephalic, atraumatic, bilateral external ears normal, oropharynx moist, no oral exudates, nose normal. [] Eyes: PERRLA, EOMI, conjunctiva normal, no discharge. [] Neck: Normal range of motion, no tenderness, supple, no stridor. [] Cardiovascular:Heart rate regular rhythm, no murmur [] Lungs & Thorax: Bilateral breath sounds clear to auscultation [] Abdomen: Bowel sounds normal, soft, no tenderness, no masses, no pulsatile masses. [] Skin: Warm, dry, no erythema, no rash. [] Back: No tenderness, no CVA tenderness. [] Extremities: No tenderness, no cyanosis, no clubbing, ROM intact, no edema. [] Neurologic: Alert and oriented X 3, normal motor function, normal sensory function, no focal deficits noted. [] Psychologic: Affect normal, judgement normal, mood normal. [] Current Patient Data Vital Signs Vital Signs Date Time Temp Pulse Resp B/P (MAP) Pulse Ox O2 Delivery O2 Flow Rate FiO2 07/25/18 21:10 98.1 85 18 115/66 (82) 100 Room Air 98.1 EKG EKG [] Radiology/Procedures Radiology/Procedures [] Course & Med Decision Making Course & Med Decision Making Pertinent Labs and Imaging studies reviewed. (See chart for details) [] Dragon Disclaimer Dragon Disclaimer This electronic medical record was generated, in whole or in part, using a voice recognition dictation system. Departure Departure Impression: Primary Impression: Anxiety Disposition: 01 HOME, SELF-CARE Condition: STABLE Referrals: NO PCP (PCP) Patient Instructions: Anxiety and Panic Attacks, [id number], Post-Traumatic Stress-Brief Scripts Diazepam (DIAZEPAM) 2 Mg Tablet 2 MG PO TID PRN for ANXIETY, #10 TAB Prov: JOSE A BOOKER DO 07/25/18 JOSE A BOOKER DO Jul 25, 2018 21:44
== END 2018-07-25 21:50 | disposition home or self-care (01) ==
LOC: ER 21:07
DX: F41.9 Anxiety disorder, unspecified (principal); Z98.890 Other specified postprocedural states
CPT/HCPCS: 99284

== ENCOUNTER 2018-08-24 15:19 | Emergency (ER) | payer SELFPAY ==
[~2018-08-24] VITALS: Ht 162.6 cm; Wt 65.8 kg
[~2018-08-24 15:19] MED LIST changes: +DIAZ2TAB3 PO
[2018-08-24 16:00] VITALS: BP 112/60
[2018-08-24 16:38] LABS: BILIRUBIN,URINE NEGATIVE (NEG); CLARITY,URINE CLEAR; COLOR,URINE YELLOW; NITRITE,URINE NEGATIVE (NEG); PH,URINE 7.5; PROTEIN,URINE NEGATIVE (NEG-TRACE)
[2018-08-24 16:51] LABS: BACTERIA,URINE FEW /HPF (0-FEW); SQUAMOUS EPITHELIAL CELL,UR MOD /LPF; WBC,URINE >40 /HPF (0-4)
[2018-08-24] MEDS ORDERED: CEPH-264 PO (18:54)
[2018-08-24] MEDS ORDERED: FLUC150T PO (18:54)
[2018-08-24] MEDS ORDERED: METR500T PO (18:54)
--- NOTE | 2018-08-24 18:56 | PHYS DOC ---
Past Medical History Past Medical History: Anxiety Additional Past Medical Histor: Irregular vaginal bleeding Past Surgical History: Additional Past Surgical Histo: x3 c-sections, D&C Alcohol Use: Occasionally Drug Use: None Adult General Chief Complaint Chief Complaint: SEXUALLY TRANSMITTED DISEASE HPI HPI Patient is a 28 year old [f__sex] who presents with [] Review of Systems Review of Systems Constitutional: Denies fever or chills [] Eyes: Denies change in visual acuity, redness, or eye pain [] HENT: Denies nasal congestion or sore throat [] Respiratory: Denies cough or shortness of breath [] Cardiovascular: No additional information not addressed in HPI [] GI: Denies abdominal pain, nausea, vomiting, bloody stools or diarrhea [] : Denies dysuria or hematuria [] Musculoskeletal: Denies back pain or joint pain [] Integument: Denies rash or skin lesions [] Neurologic: Denies headache, focal weakness or sensory changes [] Endocrine: Denies polyuria or polydipsia [] All other systems were reviewed and found to be within normal limits, except as documented in this note. Current Medications Current Medications Current Medications Medications (Trade) Dose Ordered Sig/Crissy Start Time Stop Time Status Last Admin Dose Admin Azithromycin (Zithromax) 1,000 mg 1X ONCE 08/24/18 18:45 08/24/18 18:46 UNV Ceftriaxone Sodium (Rocephin Im) 250 mg 1X ONCE 08/24/18 18:45 08/24/18 18:46 UNV Allergies Allergies Allergies Coded Allergies Type Severity Reaction Last Updated Verified No Known Drug Allergies 12/28/13 No Physical Exam Physical Exam Constitutional: Well developed, well nourished, no acute distress, non-toxic appearance. [] HENT: Normocephalic, atraumatic, bilateral external ears normal, oropharynx moist, no oral exudates, nose normal. [] Eyes: PERRLA, EOMI, conjunctiva normal, no discharge. [] Neck: Normal range of motion, no tenderness, supple, no stridor. [] Cardiovascular:Heart rate regular rhythm, no murmur [] Lungs & Thorax: Bilateral breath sounds clear to auscultation [] Abdomen: Bowel sounds normal, soft, no tenderness, no masses, no pulsatile masses. [] Skin: Warm, dry, no erythema, no rash. [] Back: No tenderness, no CVA tenderness. [] Extremities: No tenderness, no cyanosis, no clubbing, ROM intact, no edema. [] Neurologic: Alert and oriented X 3, normal motor function, normal sensory function, no focal deficits noted. [] Psychologic: Affect normal, judgement normal, mood normal. [] Current Patient Data Vital Signs Vital Signs Date Time Temp Pulse Resp B/P (MAP) Pulse Ox O2 Delivery O2 Flow Rate FiO2 08/24/18 16:00 98.8 107 17 112/60 (77) 100 Room Air 98.8 Lab Values Laboratory Tests Test 08/24/18 16:20 08/24/18 16:24 Urine Collection Type Unknown Urine Color Yellow Urine Clarity Clear Urine pH 7.5 Urine Specific [place] >=1.030 Urine Protein Negative mg/dL (NEG-TRACE) Urine Glucose (UA) Negative mg/dL (NEG) Urine Ketones (Stick) Trace mg/dL (NEG) Urine Blood Negative (NEG) Urine Nitrite Negative (NEG) Urine Bilirubin Negative (NEG) Urine Urobilinogen Dipstick 1.0 mg/dL (0.2 mg/dL) Urine Leukocyte Esterase Large (NEG) Urine RBC 3-5 /HPF (0-2) Urine WBC >40 /HPF (0-4) Urine Squamous Epithelial Cells Mod /LPF Urine Bacteria Few /HPF (0-FEW) Urine Mucus Marked /LPF POC Urine HCG, Qualitative Hcg negative (Negative) Microbiology 08/24/18 Wet Prep - Final, Complete EKG EKG [] Radiology/Procedures Radiology/Procedures Pelvic Exam: EDT Chief Contract Officer present Abdomen: Nontender External Genitalia: Normal Skin-no lesions or rash Speculum: Normal vaginal mucosa, Bimanual: No adnexal masses or tenderness, No CMT Course & Med Decision Making Course & Med Decision Making Pertinent Labs and Imaging studies reviewed. (See chart for details) [] Dragon Disclaimer Dragon Disclaimer This electronic medical record was generated, in whole or in part, using a voice recognition dictation system. Departure Departure Impression: Primary Impression: UTI (urinary tract infection) Additional Impression: Bacterial vaginosis Disposition: HOME, SELF-CARE Condition: STABLE Referrals: NO PCP (PCP) Patient Instructions: Bacterial Vaginosis, Safe Sex, Urinary Tract Infection Additional Instructions: Until completion of antibiotics avoid sexual intercourse or at least use condoms. You should be rechecked after completion of the antibiotics to ensure the infection is completely treated. Drink plenty of fluids. Tylenol and/or ibuprofen as needed for pain as directed on container. Follow-up on your tests in 2-3 days for results While on antibiotics you may want to do [id number] probiotics as directed on container. Scripts Cephalexin (KEFLEX) 500 Mg Capsule 1 CAP PO BID, #14 CAP 0 Refills Prov: EDA RUIZ APRN 08/24/18 Fluconazole (DIFLUCAN) 150 Mg Tablet 1 TAB PO ONCE, #1 TAB 1 Refill Take after completion of your antibiotics. If your symptoms persist you can refill this medication intake and additional dose. Prov: EDA RUIZ APRN 08/24/18 Metronidazole (FLAGYL) 500 Mg Tablet 1 TAB PO BID, #14 TAB 0 Refills Prov: EDA RUIZ APRN 08/24/18 Problem Qualifiers EDA RUIZ APRN August 24, 2018 18:56
[2018-08-24] MEDS ORDERED: AZITHROMYCIN 250 MG TABLET. PO ONE (19:00)
[2018-08-24] MEDS ORDERED: cefTRIAXone IM 250 MG VIAL IM ONE (19:00)
[2018-08-27 14:10] LABS: GC PROBE Negative (Negative)
== END 2018-08-24 18:57 | disposition left against medical advice (07) ==
LOC: ER 15:19
DX: N39.0 Urinary tract infection, site not specified (principal); N76.0 Acute vaginitis; B96.89 Other specified bacterial agents as the cause of diseases classified elsewhere; F41.9 Anxiety disorder, unspecified; Z98.890 Other specified postprocedural states
CPT/HCPCS: 81001; 81025; 87086; 87491; 87591; 99284; Q0111

== ENCOUNTER 2019-02-03 05:59 | Emergency (ER) | payer SELFPAY ==
[~2019-02-03] VITALS: Ht 162.6 cm; Wt 65.8 kg
[2019-02-03] MEDS ORDERED: KETOROLAC 30 MG/ML VIAL. IV ONE (06:45)
[2019-02-03] MEDS ORDERED: IV NORMAL SALINE 1000ML BAG 1,000 ML IV SCH (06:45)
--- NOTE | 2019-02-03 06:48 | PHYS DOC ---
Past Medical History Past Medical History: Anxiety Additional Past Medical Histor: Irregular vaginal bleeding Past Surgical History: Additional Past Surgical Histo: x3 c-sections, D&C Alcohol Use: Occasionally Drug Use: None Adult General Chief Complaint Chief Complaint: ABDOMINAL PAIN HPI HPI Patient is a 28-year-old female who presents to the emergency department for evaluation. She states that yesterday, she began experiencing diffuse lower abdominal crampy pain. She began her menstrual period on Sunday, but states the discomfort that she is experiencing does not feel like her typical menstrual- related pain. She has not had any nausea, vomiting, or diarrhea. She denies having any other vaginal discharge, and denies concern for STD, and declines evaluation for same at this time. She has not had any urinary symptoms. She has not had any fevers or chills. There are no alleviating or exacerbating factors to her symptoms. Review of Systems Review of Systems Constitutional: Denies fever or chills [] Eyes: Denies change in visual acuity, redness, or eye pain [] HENT: Denies nasal congestion or sore throat [] Respiratory: Denies cough or shortness of breath [] Cardiovascular: The patient denies any shortness of breath, chest pain, palpitations, or orthopnea[] GI: Denies nausea, vomiting, bloody stools or diarrhea [] : Denies dysuria or hematuria [] Musculoskeletal: Denies back pain or joint pain [] Integument: Denies rash or skin lesions [] Neurologic: Denies headache, focal weakness or sensory changes [] Endocrine: Denies polyuria or polydipsia [] All other systems were reviewed and found to be within normal limits, except as documented in this note. Current Medications Current Medications Current Medications Medications (Trade) Dose Ordered Sig/Crissy Start Time Stop Time Status Last Admin Dose Admin Ceftriaxone Sodium (Rocephin) 1 gm 1X ONCE 02/03/19 08:15 02/03/19 08:16 DC 02/03/19 08:15 1 GM Info (CONTRAST GIVEN -- Rx MONITORING) 1 each PRN DAILY PRN 02/03/19 08:00 02/05/19 07:59 Iohexol (Omnipaque 300 Mg/ml) 75 ml 1X ONCE 02/03/19 08:00 02/03/19 08:01 DC 02/03/19 08:27 75 ML Ketorolac Tromethamine (Toradol 30mg Vial) 30 mg 1X ONCE 02/03/19 06:45 02/03/19 06:49 DC 02/03/19 07:32 30 MG Sodium Chloride 1,000 ml @ 1,000 mls/hr Q1H 02/03/19 06:45 02/03/19 07:44 DC 02/03/19 07:31 1,000 MLS/HR Allergies Allergies Allergies Coded Allergies Type Severity Reaction Last Updated Verified No Known Drug Allergies 12/28/13 No Physical Exam Physical Exam PHYSICAL EXAM: CONSTITUTIONAL: Well developed, well nourished HEAD: normocephalic, atraumatic EENT: PERRL, EOMI. Conjunctivae normal color, sclerae non-icteric; moist mucous membranes. NECK: Supple, non-tender; no meningismus. LUNGS: Lungs CTA, breathing even and unlabored. Normal air movement. HEART: Regular rate and rhythm, no murmur CHEST: No deformity; non-tender ABDOMEN: The abdomen is soft, there is mild diffuse tenderness to palpation to the mid and lower abdomen, without rebound or guarding, there is no focal tenderness to palpation, the upper abdomen including the right lower quadrant are relatively non-tender, no masses or bruits. EXTREM: Normal ROM; no deformity, no calf tenderness. Normal pulses palpable in all extremities. There is no pedal edema. SKIN: No rash; no diaphoresis NEURO: Alert; normal speech and cognition; CN's grossly intact; strength grossly intact without focal deficit. BACK: No CVA TTP. Current Patient Data Vital Signs Vital Signs Date Time Temp Pulse Resp B/P (MAP) Pulse Ox O2 Delivery O2 Flow Rate FiO2 02/03/19 08:17 71 16 109/65 (80) 100 Room Air 02/03/19 06:34 98.3 98.3 Lab Values Laboratory Tests Test 02/03/19 06:50 02/03/19 07:10 02/03/19 08:11 Urine Collection Type Void Urine Color Yellow Urine Clarity Cloudy Urine pH 7.5 Urine Specific [place] 1.015 Urine Protein 30 mg/dL (NEG-TRACE) Urine Glucose (UA) Negative mg/dL (NEG) Urine Ketones (Stick) Negative mg/dL (NEG) Urine Blood Moderate (NEG) Urine Nitrite Negative (NEG) Urine Bilirubin Negative (NEG) Urine Urobilinogen Dipstick 0.2 mg/dL (0.2 mg/dL) Urine Leukocyte Esterase Large (NEG) Urine RBC 3-5 /HPF (0-2) Urine WBC >40 /HPF (0-4) Urine Squamous Epithelial Cells Mod /LPF Urine Bacteria Few /HPF (0-FEW) White Blood Count 7.7 x10^3/uL (4.0-11.0) Red Blood Count 4.04 x10^6/uL (3.50-5.40) Hemoglobin 12.3 g/dL (12.0-15.5) Hematocrit 35.6 % (36.0-47.0) L Mean Corpuscular Volume 88 fL (79-100) Mean Corpuscular Hemoglobin 30 pg (25-35) Mean Corpuscular Hemoglobin Concent 35 g/dL (31-37) Red Cell Distribution Width 13.0 % (11.5-14.5) Platelet Count 331 x10^3/uL (140-400) Neutrophils (%) (Auto) 70 % (31-73) Lymphocytes (%) (Auto) 22 % (24-48) L Monocytes (%) (Auto) 7 % (0-9) Eosinophils (%) (Auto) 1 % (0-3) Basophils (%) (Auto) 1 % (0-3) Neutrophils # (Auto) 5.3 x10^3/uL (1.8-7.7) Lymphocytes # (Auto) 1.7 x10^3/uL (1.0-4.8) Monocytes # (Auto) 0.5 x10^3/uL (0.0-1.1) Eosinophils # (Auto) 0.1 x10^3/uL (0.0-0.7) Basophils # (Auto) 0.0 x10^3/uL (0.0-0.2) Sodium Level 144 mmol/L (136-145) Potassium Level 3.8 mmol/L (3.5-5.1) Chloride Level 111 mmol/L (98-107) H Carbon Dioxide Level 23 mmol/L (21-32) Anion Gap 10 (6-14) Blood Urea Nitrogen 12 mg/dL (7-20) Creatinine 0.7 mg/dL (0.6-1.0) Estimated GFR (Cockcroft-Gault) 121.5 BUN/Creatinine Ratio 17 (6-20) Glucose Level 84 mg/dL (70-99) Calcium Level 8.5 mg/dL (8.5-10.1) Total Bilirubin 0.5 mg/dL (0.2-1.0) Aspartate Amino Transferase (AST) 14 U/L (15-37) L Alanine Aminotransferase (ALT) 12 U/L (14-59) L Alkaline Phosphatase 47 U/L (46-116) Total Protein 7.2 g/dL (6.4-8.2) Albumin 3.5 g/dL (3.4-5.0) Albumin/Globulin Ratio 0.9 (1.0-1.7) L Lipase 114 U/L (73-393) POC Urine HCG, Qualitative Hcg negative (Negative) Laboratory Tests 02/03/19 07:10 Laboratory Tests 02/03/19 07:10 EKG EKG [] Radiology/Procedures Radiology/Procedures PROCEDURE: CT ABD PELV W/ IV CONTRST ONLY EXAM: CT ABDOMEN/PELVIS WITH CONTRAST. HISTORY: Lower abdominal pain. TECHNIQUE: Computed tomography of the abdomen and pelvis was performed after the intravenous administration of iodinated contrast. COMPARISON: None. FINDINGS: Lung windows through the visualized portions of the bases reveal mild atelectasis. Bone windows reveal no suspicious lesions. There appears to be mild gallbladder wall thickening. There is no radiopaque cholelithiasis. There is no biliary dilatation. The liver, pancreas, adrenal glands, spleen and kidneys are unremarkable. There are no pathologically enlarged lymph nodes. The appendix is not inflamed. 2 dense objects within the infraumbilical region appear to be tubal ligation clips, but these do not appear associated with the adnexa. The uterus and ovaries are otherwise unremarkable by CT. There is no small bowel obstruction. IMPRESSION: 1. Mild gallbladder wall thickening is nonspecific. Correlate for systemic edematous states, hepatic inflammation or cholecystitis. Sonography could further evaluate. 2. What appear to be tubal ligation clips no longer appear associated with the adnexa. Correlate to exclude undesired fertility.[] Course & Med Decision Making Course & Med Decision Making Pertinent Labs and Imaging studies reviewed. (See chart for details) [] 9:00 AM: The patient's condition remains stable. Her abdomen has been re- examined. There is no RUQ TTP. She is feeling better and her pain has resolved. She again declined pelvic exam. She states that she is prone to yeast infections with UTIs, and requests medicine for this. I discussed importance of follow-up with her shape hand, and return precautions in detail. She does see a shape hand regularly. Dragon Disclaimer Dragon Disclaimer This electronic medical record was generated, in whole or in part, using a voice recognition dictation system. Departure Departure Impression: Primary Impression: Pelvic pain Additional Impression: UTI (urinary tract infection) Disposition: 01 HOME, SELF-CARE Condition: STABLE Patient Instructions: Pelvic Pain, Female, Urinary Tract Infection Scripts Doxycycline Hyclate (DOXYCYCLINE HYCLATE) 100 Mg Tablet 1 TAB PO BID, #14 TAB Prov: GEMA PEGUERO MD 02/03/19 Problem Qualifiers GEMA PEGUERO MD Feb 03, 2019 06:48
[2019-02-03 07:20] LABS: BILIRUBIN,URINE NEGATIVE (NEG); CLARITY,URINE CLOUDY; COLOR,URINE YELLOW; NITRITE,URINE NEGATIVE (NEG); PH,URINE 7.5; PROTEIN,URINE 30 mg/dL (NEG-TRACE); UROBILINOGEN,URINE 0.2 mg/dL (0.2 mg/dL)
[2019-02-03 07:21] LABS: BASO % 1 % (0-3); EOS # 0.1 x10^3/uL (0.0-0.7); EOS % 1 % (0-3); HEMATOCRIT 35.6 % (36.0-47.0); HEMOGLOBIN 12.3 g/dL (12.0-15.5); LYMPH # 1.7 x10^3/uL (1.0-4.8); LYMPH % 22 % (24-48); MEAN CORPUSCULAR HEMOGLOBIN 30 pg (25-35); MEAN CORPUSCULAR HGB CONC 35 g/dL (31-37); MEAN CORPUSCULAR VOLUME 88 fL (79-100); MONO # 0.5 x10^3/uL (0.0-1.1); MONO % 7 % (0-9); NEUT # 5.3 x10^3/uL (1.8-7.7); NEUT % 70 % (31-73); PLATELET COUNT 331 x10^3/uL (140-400); RED BLOOD COUNT 4.04 x10^6/uL (3.50-5.40); WHITE BLOOD COUNT 7.7 x10^3/uL (4.0-11.0)
[2019-02-03 07:27] LABS: SQUAMOUS EPITHELIAL CELL,UR MOD /LPF; WBC,URINE >40 /HPF (0-4)
[2019-02-03 07:28] LABS: BACTERIA,URINE FEW /HPF (0-FEW)
[2019-02-03 07:30] LABS: CALCIUM 8.5 mg/dL (8.5-10.1); CREATININE 0.7 mg/dL (0.6-1.0); GFR 121.5; POTASSIUM 3.8 mmol/L (3.5-5.1)
[2019-02-03 07:36] LABS: ALBUMIN 3.5 g/dL (3.4-5.0); ALBUMIN/GLOBULIN RATIO 0.9 (1.0-1.7); TOTAL BILIRUBIN 0.5 mg/dL (0.2-1.0); TOTAL PROTEIN 7.2 g/dL (6.4-8.2)
[2019-02-03] MEDS ORDERED: IOHEXOL 300 MG/ML 100ML VIAL. IV ONE (08:00)
[2019-02-03] MEDS ORDERED: CONTRAST GIVEN. MC PRN (08:00)
[2019-02-03] MEDS ORDERED: cefTRIAXone IV Push 1 GM VIAL. IVP ONE (08:15)
[2019-02-03 08:17] VITALS: BP 109/65
--- NOTE | 2019-02-03 08:48 | RAD ---
EXAM: CT ABDOMEN/PELVIS WITH CONTRAST. HISTORY: Lower abdominal pain. TECHNIQUE: Computed tomography of the abdomen and pelvis was performed after the intravenous administration of iodinated contrast. COMPARISON: None. FINDINGS: Lung windows through the visualized portions of the bases reveal mild atelectasis. Bone windows reveal no suspicious lesions. There appears to be mild gallbladder wall thickening. There is no radiopaque cholelithiasis. There is no biliary dilatation. The liver, pancreas, adrenal glands, spleen and kidneys are unremarkable. There are no pathologically enlarged lymph nodes. The appendix is not inflamed. 2 dense objects within the infraumbilical region appear to be tubal ligation clips, but these do not appear associated with the adnexa. The uterus and ovaries are otherwise unremarkable by CT. There is no small bowel obstruction. IMPRESSION: 1. Mild gallbladder wall thickening is nonspecific. Correlate for systemic edematous states, hepatic inflammation or cholecystitis. Sonography could further evaluate. 2. What appear to be tubal ligation clips no longer appear associated with the adnexa. Correlate to exclude undesired fertility. *One or more of the following individualized dose reduction techniques were utilized for this examination: 1. Automated exposure control. 2. Adjustment of the mA and/or kV according to patient size. 3. Use of iterative reconstruction technique. Electronically signed by: Alfredo Holman MD (02/03/2019 8:46 AM) [facility]
[2019-02-03] MEDS ORDERED: DOXY100T PO (09:08)
[2019-02-03] MEDS ORDERED: FLUC150T PO (09:26)
== END 2019-02-03 09:33 | disposition home or self-care (01) ==
LOC: ER 05:59
DX: N39.0 Urinary tract infection, site not specified (principal)
CPT/HCPCS: 36415; 74177; 80053; 81001; 81025; 83690; 85025; 87086; 96374; 96375; 99285; J0696; J1885; J7030; Q9967

== ENCOUNTER 2019-03-18 18:34 | Emergency (ER) | payer OTHER ==
[~2019-03-18] VITALS: Ht 162.6 cm; Wt 67.1 kg
[2019-03-18 18:56] VITALS: BP 116/57
[2019-03-18] MEDS ORDERED: IBUP-1027 PO (20:10)
[2019-03-18] MEDS ORDERED: ORPH100T PO (20:10)
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
== END 2019-03-18 20:16 | disposition home or self-care (01) ==
LOC: ER 18:34
DX: M54.89 Other dorsalgia (principal); G89.11 Acute pain due to trauma; V49.49XA Driver injured in collision with other motor vehicles in traffic accident, initial encounter; Y93.89 Activity, other specified; Y92.488 Other paved roadways as the place of occurrence of the external cause; Y99.8 Other external cause status
CPT/HCPCS: 99283

== ENCOUNTER 2019-07-22 11:55 | Emergency (ER) | payer BC, OTHER ==
[~2019-07-22] VITALS: Ht 162.6 cm; Wt 68.1 kg
[~2019-07-22 11:55] MED LIST changes: +IBUP-1027 PO; +ORPH100T PO
[2019-07-22 12:32] LABS: BASO # 0.1 x10^3/uL (0.0-0.2); BASO % 1 % (0-3); EOS # 0.2 x10^3/uL (0.0-0.7); EOS % 2 % (0-3); HEMATOCRIT 37.3 % (36.0-47.0); HEMOGLOBIN 12.7 g/dL (12.0-15.5); LYMPH # 2.1 x10^3/uL (1.0-4.8); LYMPH % 29 % (24-48); MEAN CORPUSCULAR HEMOGLOBIN 30 pg (25-35); MEAN CORPUSCULAR HGB CONC 34 g/dL (31-37); MEAN CORPUSCULAR VOLUME 88 fL (79-100); MONO # 0.6 x10^3/uL (0.0-1.1); MONO % 8 % (0-9); NEUT # 4.2 x10^3/uL (1.8-7.7); NEUT % 60 % (31-73); PLATELET COUNT 378 x10^3/uL (140-400); RED BLOOD COUNT 4.23 x10^6/uL (3.50-5.40); RED CELL DISTRIBUTION WIDTH 12.7 % (11.5-14.5); WHITE BLOOD COUNT 7.1 x10^3/uL (4.0-11.0)
[2019-07-22 12:39] LABS: CALCIUM 8.7 mg/dL (8.5-10.1); CREATININE 0.9 mg/dL (0.6-1.0); GFR 90.2; POTASSIUM 3.9 mmol/L (3.5-5.1)
[2019-07-22 12:45] LABS: ALBUMIN 3.6 g/dL (3.4-5.0); TOTAL BILIRUBIN 0.6 mg/dL (0.2-1.0); TOTAL PROTEIN 7.1 g/dL (6.4-8.2)
--- NOTE | 2019-07-22 12:51 | PHYS DOC ---
Past Medical History Past Medical History: Anxiety Additional Past Medical Histor: Irregular vaginal bleeding Past Surgical History: Additional Past Surgical Histo: x3 c-sections, D&C tubal ligation with vieira clips removed Smoking Status: Never Smoker Alcohol Use: Occasionally Drug Use: None General Adult EDM: Chief Complaint: VAGINAL BLEEDING HPI: HPI: Patient is a 29 year old female (LMP 06/17/19) potentially 5 wks pre gnant, presents to the ED with complaints of lower abdominal pain and vaginal bleeding that started today when she wiped after using the restroom. Patient reports she was at [facility] on Sunday for similar complaints and had a beta-hCG of 69, was treated for bacterial vaginosis. Was told she had a tubal ligation with clips of been removed, was told to the clip she had an increased risk of ectopic . No history of ectopic pregnancies. ROS: Denies associated fever, chills, cough, chest pain, dyspnea, dyspnea, lightheadedness, dizziness, syncope, epigastric pain, nausea or vomiting. Heart Score: Risk Factors: Risk Factors: DM, Current or recent (<one month) smoker, HTN, HLP, family history of CAD, obesity. Risk Scores: Score 0 - 3: 2.5% MACE over next 6 weeks - Discharge Home Score 4 - 6: 20.3% MACE over next 6 weeks - Admit for Clinical Observation Score 7 - 10: 72.7% MACE over next 6 weeks - Early Invasive Strategies Allergies: Allergies: Allergies Coded Allergies Type Severity Reaction Last Updated Verified No Known Drug Allergies 12/28/13 No Physical Exam: PE: Constitutional: Well developed, well nourished, no acute distress, non-toxic appearance. [] HENT: Normocephalic, atraumatic, bilateral external ears normal, oropharynx moist, Eyes: EOMI, conjunctiva normal, no discharge. [] Neck: Normal range of motion, no tenderness, supple, no stridor. [] Cardiovascular:Heart rate regular rhythm, no murmur [] Lungs & Thorax: Bilateral breath sounds clear to auscultation [] Abdomen: Bowel sounds normal, soft, no tenderness, no masses, no pulsatile masses. [] Skin: Warm, dry, no erythema, no rash. Back: No tenderness, no CVA tenderness. Extremities: No tenderness, no cyanosis, no clubbing, ROM intact, no edema. Neurologic: Alert and oriented X 3, normal motor function, normal sensory function, no focal deficits noted. Psychologic: Affect normal, judgement normal, mood normal. Pelvic exam chaperoned by RN, multip os, mild/mod vaginal bleeding, closed os Current Patient Data: Labs: Laboratory Tests Test 07/22/19 12:20 White Blood Count 7.1 x10^3/uL (4.0-11.0) Red Blood Count 4.23 x10^6/uL (3.50-5.40) Hemoglobin 12.7 g/dL (12.0-15.5) Hematocrit 37.3 % (36.0-47.0) Mean Corpuscular Volume 88 fL (79-100) Mean Corpuscular Hemoglobin 30 pg (25-35) Mean Corpuscular Hemoglobin Concent 34 g/dL (31-37) Red Cell Distribution Width 12.7 % (11.5-14.5) Platelet Count 378 x10^3/uL (140-400) Neutrophils (%) (Auto) 60 % (31-73) Lymphocytes (%) (Auto) 29 % (24-48) Monocytes (%) (Auto) 8 % (0-9) Eosinophils (%) (Auto) 2 % (0-3) Basophils (%) (Auto) 1 % (0-3) Neutrophils # (Auto) 4.2 x10^3/uL (1.8-7.7) Lymphocytes # (Auto) 2.1 x10^3/uL (1.0-4.8) Monocytes # (Auto) 0.6 x10^3/uL (0.0-1.1) Eosinophils # (Auto) 0.2 x10^3/uL (0.0-0.7) Basophils # (Auto) 0.1 x10^3/uL (0.0-0.2) Laboratory Tests 07/22/19 12:20 Vital Signs: Vital Signs Date Time Temp Pulse Resp B/P (MAP) Pulse Ox O2 Delivery O2 Flow Rate FiO2 07/22/19 12:08 98.1 84 16 120/66 (84) 99 Room Air 98.1 EKG: EKG: [] Radiology/Procedures: Radiology/Procedures: [facility] [address] [place] [address] IMAGING REPORT Signed PATIENT: ALMA DEJESUS ACCOUNT: [id number] : 1990 LOCATION: ER AGE: 29 SEX: F EXAM STATUS: REG ER ORD. PHYSICIAN: EDA WOOD DO REASON: confirm iup PROCEDURE: OB <14 WKS W/TV Study: US OB <14 WKS W/TV DATE: 07/22/2019 11:59 AM INDICATION: Assess for intrauterine . COMPARISON: None recently. TECHNIQUE: Transabdominal ultrasonography of the pelvis was performed. Color Doppler and duplex were utilized as appropriate. FINDINGS: Note is made that the patient could not tolerate the transvaginal portion of the exam. The uterus is measured at 4.9 x 6.6 x 4.0 cm. The endometrial echo is measured at approximately 0.5 cm. No intrauterine gestational sac is identified. The right ovary measures 2.4 x 1.5 x 2.6 in meters. The left ovary measures 2.0 x 2.7 x 2.6 in meters. Normal Doppler flow to both ovaries. No suspicious cyst or mass at either adnexa. No free fluid seen within the deep pelvis. IMPRESSION: 1. The patient was unable to tolerate the transvaginal portion of the exam which limits the diagnostic utility. 2. No intrauterine is identified at this time. Correlation is needed with beta hCG levels to determine if one would be expected to be seen. Based on the sonographic findings alone, early intrauterine gestation, failed first trimester or nonvisualized ectopic are all considerations. 3. No concerning abnormality at either adnexa and there is no free fluid within the pelvis. Electronically signed by: AKUA SPAULDING MD (07/22/2019 1:20 PM) [id number] DICTATED and SIGNED BY: AKUA SPAULDING MD DATE: 07/22/19 1321 Course & Med Decision Making: Course & Med Decision Making Pertinent Labs and Imaging studies reviewed. (See chart for details) Concern for threatened miscarriage versus inevitable -recommended repeat follow-up with GEOMORPHOLOGIST in 48 hours for hCG check. Pt well appearing, in no distress or severe pain Strict ED return precautions for severe abdominal pain, worsening vaginal bleeding or syncope. All patient's questions were answered and she was stable at time of discharge. Dragon Disclaimer: Dragon Disclaimer: This electronic medical record was generated, in whole or in part, using a voice recognition dictation system. Departure Departure Impression: Primary Impression: Threatened Disposition: HOME, SELF-CARE Condition: STABLE Referrals: NO PCP (PCP) JOSE A LANDIS MD 48 hours for hcg check Patient Instructions: Threatened [facility]iscarriage [facility] DO Jul 22, 2019 12:51
--- NOTE | 2019-07-22 13:23 | RAD ---
Study: US OB <14 WKS W/TV DATE: 07/22/2019 11:59 AM INDICATION: Assess for intrauterine . COMPARISON: None recently. TECHNIQUE: Transabdominal ultrasonography of the pelvis was performed. Color Doppler and duplex were utilized as appropriate. FINDINGS: Note is made that the patient could not tolerate the transvaginal portion of the exam. The uterus is measured at 4.9 x 6.6 x 4.0 cm. The endometrial echo is measured at approximately 0.5 cm. No intrauterine gestational sac is identified. The right ovary measures 2.4 x 1.5 x 2.6 in meters. The left ovary measures 2.0 x 2.7 x 2.6 in meters. Normal Doppler flow to both ovaries. No suspicious cyst or mass at either adnexa. No free fluid seen within the deep pelvis. IMPRESSION: 1. The patient was unable to tolerate the transvaginal portion of the exam which limits the diagnostic utility. 2. No intrauterine is identified at this time. Correlation is needed with beta hCG levels to determine if one would be expected to be seen. Based on the sonographic findings alone, early intrauterine gestation, failed first trimester or nonvisualized ectopic are all considerations. 3. No concerning abnormality at either adnexa and there is no free fluid within the pelvis. Electronically signed by: AKUA SPAULDING MD (07/22/2019 1:20 PM) [id number]
[2019-07-22 13:30] VITALS: BP 102/56
== END 2019-07-22 14:24 | disposition home or self-care (01) ==
LOC: ER 11:55
DX: O20.0 Threatened abortion (principal); R10.30 Lower abdominal pain, unspecified; F41.9 Anxiety disorder, unspecified; Z98.51 Tubal ligation status; Z98.890 Other specified postprocedural states; Z3A.01 Less than 8 weeks gestation of pregnancy
CPT/HCPCS: 36415; 76801; 76817; 80053; 84702; 85025; 86850; 86900; 86901; 99285

== ENCOUNTER 2019-11-12 18:25 | Emergency (ER) | payer BC, OTHER | END 2019-11-12 19:44 | disposition left against medical advice (07) | LOC: ER 18:25 | DX: M25.511 Pain in right shoulder (principal); Z53.21 Procedure and treatment not carried out due to patient leaving prior to being seen by health care provider ==

== ENCOUNTER 2020-01-15 19:43 | Emergency (ER) | payer OTHER ==
[~2020-01-15] VITALS: Ht 162.6 cm; Wt 65.0 kg
[2020-01-15 20:02] VITALS: BP 121/85
[2020-01-15 20:11] LABS: BILIRUBIN,URINE NEGATIVE (NEG); CLARITY,URINE CLEAR; COLOR,URINE YELLOW; NITRITE,URINE NEGATIVE (NEG); PROTEIN,URINE NEGATIVE (NEG-TRACE)
[2020-01-15 20:18] LABS: AMPHETAMINE/METHAMPHETAMINE NEG (NEG); BACTERIA,URINE 0 /HPF (0-FEW); BARBITURATES NEG (NEG); BENZODIAZEPINES NEG (NEG); CANNABINOIDS NEG (NEG); COCAINE NEG (NEG); METHADONE NEG (NEG); OPIATES NEG (NEG); PHENCYCLIDINE NEG (NEG); RBC,URINE OCC /HPF (0-2)
[2020-01-15 20:27] LABS: BASO # 0.1 x10^3/uL (0.0-0.2); BASO % 1 % (0-3); EOS # 0.1 x10^3/uL (0.0-0.7); EOS % 2 % (0-3); HEMATOCRIT 34.6 % (36.0-47.0); HEMOGLOBIN 11.9 g/dL (12.0-15.5); LYMPH # 2.8 x10^3/uL (1.0-4.8); LYMPH % 37 % (24-48); MEAN CORPUSCULAR HEMOGLOBIN 31 pg (25-35); MEAN CORPUSCULAR HGB CONC 34 g/dL (31-37); MEAN CORPUSCULAR VOLUME 89 fL (79-100); MONO # 0.6 x10^3/uL (0.0-1.1); MONO % 8 % (0-9); NEUT # 4.1 x10^3/uL (1.8-7.7); NEUT % 53 % (31-73); PLATELET COUNT 342 x10^3/uL (140-400); RED BLOOD COUNT 3.89 x10^6/uL (3.50-5.40); RED CELL DISTRIBUTION WIDTH 12.8 % (11.5-14.5); WHITE BLOOD COUNT 7.6 x10^3/uL (4.0-11.0)
[2020-01-15 20:36] LABS: CALCIUM 8.5 mg/dL (8.5-10.1); CREATININE 0.8 mg/dL (0.6-1.0); GFR 103.3
[2020-01-15 20:41] LABS: ALBUMIN 3.6 g/dL (3.4-5.0); ALBUMIN/GLOBULIN RATIO 1.1 (1.0-1.7); TOTAL BILIRUBIN 0.4 mg/dL (0.2-1.0); TOTAL PROTEIN 6.9 g/dL (6.4-8.2)
--- NOTE | 2020-01-15 21:34 | RAD ---
PELVIS W/TV History: Reason: lower back pain. bleeding. ectopic 2 months ago / Spl. Instructions: / History: Comparison: None. Technique: Grayscale and color Doppler imaging of the pelvis was performed using transabdominal and transvaginal technique. Findings: The uterus measures 9.5 x 4.6 x 3.8 cm. section scar within the anterior lower uterine segment. Nabothian cysts noted. The endometrial stripe measures 6 mm. Right ovary measures 2.9 x 3.1 x 1.4 cm. Dominant right ovarian follicle measures 1.6 cm. Left ovary measures 3.4 x 2.5 x 1.7 cm. Normal Doppler flow to the ovaries. No adnexal masses are seen. IMPRESSION: 1. Unremarkable pelvic ultrasound. Electronically signed by: Luis Engle DO (01/15/2020 9:31 PM) [facility]
[2020-01-15] MEDS ORDERED: CEPH500T PO (21:51)
--- NOTE | 2020-01-15 21:52 | PHYS DOC ---
Past Medical History Past Medical History: Anxiety, Ectopic Additional Past Medical Histor: Irregular vaginal bleeding (BELA ACEVEDO APRN) Past Surgical History: Additional Past Surgical Histo: x3 c-sections, D&C tubal ligation with vieira clips removed (BELA ACEVEDO APRN) Smoking Status: Never Smoker Alcohol Use: Occasionally Drug Use: None (BELA ACEVEDO APRN) General Adult EDM: Chief Complaint: VAGINAL BLEEDING HPI: HPI: Patient is a 29 year old female who presents the ED today to be evaluated for vaginal bleeding that began 6 days ago, patient reports having had ectopic 2 months ago and this is her first cycle. History is a normal cycle around for 3 days, this 1 is running for 6 days. Denies any STD concerns. Denies any chance she is . (BELA ACEVEDO APRN) Review of Systems: Review of Systems: Constitutional: Denies fever or chills. [] GI: Reports vaginal bleeding. Denies abdominal pain, nausea, vomiting, bloody stools or diarrhea. [] : Denies dysuria. [] Musculoskeletal: Denies back pain or joint pain. [] Integument: Denies rash. [] Neurologic: Denies headache, focal weakness or sensory changes. [] Psychiatric: Denies depression or anxiety. [] (BELA ACEVEDO APRN) Heart Score: Risk Factors: Risk Factors: DM, Current or recent (<one month) smoker, HTN, HLP, family history of CAD, obesity. Risk Scores: Score 0 - 3: 2.5% MACE over next 6 weeks - Discharge Home Score 4 - 6: 20.3% MACE over next 6 weeks - Admit for Clinical Observation Score 7 - 10: 72.7% MACE over next 6 weeks - Early Invasive Strategies (BELA ACEVEDO APRN) Allergies: Allergies: Allergies Coded Allergies Type Severity Reaction Last Updated Verified No Known Drug Allergies 12/28/13 No (BELA ACEVEDO APRN) Physical Exam: PE: Constitutional: Well developed, well nourished, no acute distress, non-toxic appearance. [] Abdomen: Bowel sounds normal, soft, no tenderness, no masses, no pulsatile masses. [] Pelvic External pelvic appears normal, cervix is visualized, closed, no CMT, trace amount of brownish spotting type discharge in the vaginal vault, no adnexal tenderness Skin: Warm, dry, no erythema, no rash. [] Back: No tenderness, no CVA tenderness. [] Extremities: No tenderness, no cyanosis, no clubbing, ROM intact, no edema. [] Neurologic: Alert and oriented X 3, normal motor function, normal sensory function, no focal deficits noted. [] Psychologic: Affect normal, judgement normal, mood normal. [] (MUTUNGA,BELA MICA PATCHER) Current Patient Data: Labs: Laboratory Tests Test 01/15/20 19:58 01/15/20 20:06 01/15/20 20:20 Urine Collection Type Unknown Urine Color Yellow Urine Clarity Clear Urine pH 6.0 (<5.0-8.0) Urine Specific Scott 1.020 (1.000-1.030) Urine Protein Negative mg/dL (NEG-TRACE) Urine Glucose (UA) Negative mg/dL (NEG) Urine Ketones (Stick) Negative mg/dL (NEG) Urine Blood Moderate (NEG) Urine Nitrite Negative (NEG) Urine Bilirubin Negative (NEG) Urine Urobilinogen Dipstick 1.0 mg/dL (0.2 mg/dL) Urine Leukocyte Esterase Moderate (NEG) Urine RBC Occ /HPF (0-2) Urine WBC 5-10 /HPF (0-4) Urine Squamous Epithelial Cells Mod /LPF Urine Bacteria 0 /HPF (0-FEW) Urine Mucus Mod /LPF Urine Opiates Screen Neg (NEG) Urine Methadone Screen Neg (NEG) Urine Barbiturates Neg (NEG) Urine Phencyclidine Screen Neg (NEG) Urine Amphetamine/Methamphetamine Neg (NEG) Urine Benzodiazepines Screen Neg (NEG) Urine Cocaine Screen Neg (NEG) Urine Cannabinoids Screen Neg (NEG) Urine Ethyl Alcohol Neg (NEG) POC Urine HCG, Qualitative Hcg negative (Negative) White Blood Count 7.6 x10^3/uL (4.0-11.0) Red Blood Count 3.89 x10^6/uL (3.50-5.40) Hemoglobin 11.9 g/dL (12.0-15.5) L Hematocrit 34.6 % (36.0-47.0) L Mean Corpuscular Volume 89 fL (79-100) Mean Corpuscular Hemoglobin 31 pg (25-35) Mean Corpuscular Hemoglobin Concent 34 g/dL (31-37) Red Cell Distribution Width 12.8 % (11.5-14.5) Platelet Count 342 x10^3/uL (140-400) Neutrophils (%) (Auto) 53 % (31-73) Lymphocytes (%) (Auto) 37 % (24-48) Monocytes (%) (Auto) 8 % (0-9) Eosinophils (%) (Auto) 2 % (0-3) Basophils (%) (Auto) 1 % (0-3) Neutrophils # (Auto) 4.1 x10^3/uL (1.8-7.7) Lymphocytes # (Auto) 2.8 x10^3/uL (1.0-4.8) Monocytes # (Auto) 0.6 x10^3/uL (0.0-1.1) Eosinophils # (Auto) 0.1 x10^3/uL (0.0-0.7) Basophils # (Auto) 0.1 x10^3/uL (0.0-0.2) Sodium Level 143 mmol/L (136-145) Potassium Level 4.0 mmol/L (3.5-5.1) Chloride Level 107 mmol/L (98-107) Carbon Dioxide Level 28 mmol/L (21-32) Anion Gap 8 (6-14) Blood Urea Nitrogen 8 mg/dL (7-20) Creatinine 0.8 mg/dL (0.6-1.0) Estimated GFR (Cockcroft-Gault) 103.3 BUN/Creatinine Ratio 10 (6-20) Glucose Level 91 mg/dL (70-99) Calcium Level 8.5 mg/dL (8.5-10.1) Total Bilirubin 0.4 mg/dL (0.2-1.0) Aspartate Amino Transferase (AST) 18 U/L (15-37) Alanine Aminotransferase (ALT) 17 U/L (14-59) Alkaline Phosphatase 48 U/L (46-116) Total Protein 6.9 g/dL (6.4-8.2) Albumin 3.6 g/dL (3.4-5.0) Albumin/Globulin Ratio 1.1 (1.0-1.7) Ethyl Alcohol Level < 10 mg/dL (0-10) Laboratory Tests 01/15/20 20:20 Laboratory Tests 01/15/20 20:20 Microbiology 10/15/20 Wet Prep - Final, Complete Vital Signs: Vital Signs Date Time Temp Pulse Resp B/P (MAP) Pulse Ox O2 Delivery O2 Flow Rate FiO2 01/15/20 20:02 98.1 80 16 121/85 (97) 98 Room Air 98.1 (BELA ACEVEDO APRN) EKG: EKG: [] (BELA ACEVEDO APRN) Radiology/Procedures: Radiology/Procedures: []PROCEDURE: PELVIS W/TV PELVIS W/TV History: Reason: lower back pain. bleeding. ectopic 2 months ago / Spl. Instructions: / History: Comparison: None. Technique: Grayscale and color Doppler imaging of the pelvis was performed using transabdominal and transvaginal technique. Findings: The uterus measures 9.5 x 4.6 x 3.8 cm. section scar within the anterior lower uterine segment. Nabothian cysts noted. The endometrial stripe measures 6 mm. Right ovary measures 2.9 x 3.1 x 1.4 cm. Dominant right ovarian follicle measures 1.6 cm. Left ovary measures 3.4 x 2.5 x 1.7 cm. Normal Doppler flow to the ovaries. No adnexal masses are seen. IMPRESSION: 1. Unremarkable pelvic ultrasound. Electronically signed by: Luis Engle DO (01/15/2020 9:31 PM) [facility] DICTATED and SIGNED BY: LUIS ENGLE DO DATE: 01/15/202130 (BELA ACEVEDO APRN) Course & Med Decision Making: Course & Med Decision Making Pertinent Labs and Imaging studies reviewed. (See chart for details) This is a 29-year-old female patient presenting to the ED today complaining of vaginal bleeding that began 6 days ago. Patient had an ectopic 2 months ago. Negative urine hCG, positive for UTI, discharged on cephalexin. Pelvic ultrasound is negative for any acute findings, hemoglobin 11.9 with hematocrit of 34.6. CMP with no acute findings. Discharge to home. Follow-up with [facility]. Provided return precautions. (BELA ACEVEDO APRN) Course & Med Decision Making I have reviewed the PA/MUSIC ADAPTER's note and Plan of Care. I was available for consultation as needed during the patient's visit in the emergency department. I agree with the clinical impression, plans and disposition. (BENJAMÍN JORGE MD) Jenise Disclaimer: Dragon Disclaimer: This electronic medical record was generated, in whole or in part, using a voice recognition dictation system. (BELA ACEVEDO APRN) Departure Departure Impression: Primary Impression: Dysfunctional uterine bleeding Additional Impression: UTI (urinary tract infection) Qualified Codes: N39.0 - Urinary tract infection, site not specified Disposition: DC HOME SELF CARE/HOMELESS Condition: STABLE Referrals: NO PCP (PCP) CHRISTINE CARRASCO MD Follow-up in 1 to 2 weeks with your [facility] Patient Instructions: Urinary Tract Infection, Uterine Bleeding, Dysfunctional, [id number] Additional Instructions: You were seen in the emergency room for vaginal bleeding, your ultrasound is negative for any acute findings. Your lab work is okay. Your urine is positive for UTI. Take the prescribed antibiotics until completed, follow-up with your PL[facility] C[facility]TER in 1 to 2 weeks Scripts Cephalexin (CEPHALEXIN) 500 Mg Tablet 1 TAB PO BID, #14 TAB Prov: BELA ACEVEDO APRN 01/15/20 BELA ACEVEDO APRN Jan 15, 2020 21:52 BENJAMÍN JORGE MD Jan 15, 2020 22:28
[2020-01-20 18:09] LABS: GC PROBE Negative (Negative)
== END 2020-01-15 21:58 | disposition home or self-care (01) ==
LOC: ER 19:43
DX: N93.8 Other specified abnormal uterine and vaginal bleeding (principal); N39.0 Urinary tract infection, site not specified; F41.9 Anxiety disorder, unspecified; Z98.890 Other specified postprocedural states; Z98.51 Tubal ligation status
CPT/HCPCS: 76830; 76856; 80053; 80307; 81001; 81025; 85025; 87491; 87591; 99284; G0480; Q0111

== ENCOUNTER 2020-01-29 14:42 | Emergency (ER) | payer OTHER ==
[~2020-01-29] VITALS: Ht 157.5 cm; Wt 67.2 kg
[~2020-01-29 14:42] MED LIST changes: +CEPH500T PO
--- NOTE | 2020-01-29 15:09 | PHYS DOC ---
Past Medical History Past Medical History: Anxiety, Ectopic Additional Past Medical Histor: Irregular vaginal bleeding Past Surgical History: Additional Past Surgical Histo: x3 c-sections, D&C tubal ligation with vieira clips removed Smoking Status: Never Smoker Alcohol Use: Occasionally Drug Use: None General Adult EDM: Chief Complaint: ABDOMINAL PAIN HPI: HPI: Patient is a 29 year old female who was having sexual intercourse just prior to arrival and started developing severe lower abdominal pain starts in the suprapubic area radiates to the right and left lower quadrants. Patient describes the pain is severe in intensity and worse with palpation and movement. Patient also had some vaginal spotting. Patient was in her normal state of health prior to this incident just prior to arrival. Patient has any fever, chills, vomiting, diarrhea. Patient denies any dysuria. Review of Systems: Review of Systems: Constitutional: Denies fever or chills. [] Eyes: Denies change in visual acuity. [] HENT: Denies nasal congestion or sore throat. [] Respiratory: Denies cough or shortness of breath. [] Cardiovascular: Denies chest pain or edema. [] GI: Complains abdominal pain but no nausea, vomiting, bloody stools or diarrhea. [] : Denies dysuria. [] Musculoskeletal: Denies back pain or joint pain. [] Integument: Denies rash. [] Neurologic: Denies headache, focal weakness or sensory changes. [] Endocrine: Denies polyuria or polydipsia. [] Lymphatic: Denies swollen glands. [] Psychiatric: Denies depression or anxiety. [] Heart Score: Risk Factors: Risk Factors: DM, Current or recent (<one month) smoker, HTN, HLP, family history of CAD, obesity. Risk Scores: Score 0 - 3: 2.5% MACE over next 6 weeks - Discharge Home Score 4 - 6: 20.3% MACE over next 6 weeks - Admit for Clinical Observation Score 7 - 10: 72.7% MACE over next 6 weeks - Early Invasive Strategies Current Medications: Current Medications Medications (Trade) Dose Ordered Sig/Crissy Start Time Stop Time Status Last Admin Dose Admin Ketorolac Tromethamine (Toradol 15mg Vial) 15 mg 1X ONCE 01/29/20 15:15 01/29/20 15:16 UNV Ondansetron HCl (Zofran) 4 mg 1X ONCE 01/29/20 15:15 01/29/20 15:16 UNV Sodium Chloride 1,000 ml @ 1,000 mls/hr 1X ONCE 01/29/20 15:15 01/29/20 16:14 UNV Allergies: Allergies: Allergies Coded Allergies Type Severity Reaction Last Updated Verified No Known Drug Allergies 12/28/13 No Physical Exam: PE: Constitutional: Well developed, well nourished, no acute distress, non-toxic appearance. [] HENT: Normocephalic, atraumatic, bilateral external ears normal, no trismus, nose normal. [] Eyes: PERRLA, EOMI, conjunctiva normal, no discharge. [] Neck: Normal range of motion, no tenderness, supple, no stridor. [] Cardiovascular:Heart rate regular rhythm, peripheral pulse intact cap refill is brisk Lungs & Thorax: Bilateral breath sounds clear, no respiratory distress Abdomen: Abdomen is soft with some suprapubic tenderness without guarding or rebound no masses, no pulsatile masses. [] Skin: Warm, dry, no erythema, no rash. [] Back: No tenderness, no CVA tenderness. [] Extremities: No tenderness, no cyanosis, no clubbing, ROM intact, no edema. [] Neurologic: Alert and oriented X 3, normal motor function, normal sensory function, no focal deficits noted. [] Psychologic: Affect normal, judgement normal, mood normal. [] Current Patient Data: Labs: Laboratory Tests Test 01/29/20 15:03 01/29/20 15:07 01/29/20 15:15 Urine Collection Type Unknown Urine Color Yellow Urine Clarity Clear Urine pH 6.0 Urine Specific Fifield 1.025 Urine Protein Negative mg/dL Urine Glucose (UA) Negative mg/dL Urine Ketones (Stick) Negative mg/dL Urine Blood Trace Urine Nitrite Negative Urine Bilirubin Negative Urine Urobilinogen Dipstick 1.0 mg/dL Urine Leukocyte Esterase Small Urine RBC 0 /HPF Urine WBC Occ /HPF Urine Squamous Epithelial Cells Few /LPF Urine Bacteria Few /HPF Urine Mucus Marked /LPF Bedside Urine HCG, Qualitative Hcg negative White Blood Count 6.8 x10^3/uL Red Blood Count 4.09 x10^6/uL Hemoglobin 12.6 g/dL Hematocrit 36.2 % Mean Corpuscular Volume 88 fL Mean Corpuscular Hemoglobin 31 pg Mean Corpuscular Hemoglobin Concent 35 g/dL Red Cell Distribution Width 12.8 % Platelet Count 346 x10^3/uL Neutrophils (%) (Auto) 64 % Lymphocytes (%) (Auto) 28 % Monocytes (%) (Auto) 6 % Eosinophils (%) (Auto) 1 % Basophils (%) (Auto) 1 % Neutrophils # (Auto) 4.3 x10^3/uL Lymphocytes # (Auto) 1.9 x10^3/uL Monocytes # (Auto) 0.4 x10^3/uL Eosinophils # (Auto) 0.1 x10^3/uL Basophils # (Auto) 0.0 x10^3/uL Sodium Level 138 mmol/L Potassium Level 3.8 mmol/L Chloride Level 104 mmol/L Carbon Dioxide Level 26 mmol/L Anion Gap 8 Blood Urea Nitrogen 7 mg/dL Creatinine 0.8 mg/dL Estimated GFR (Cockcroft-Gault) 103.3 BUN/Creatinine Ratio 9 Glucose Level 111 mg/dL Calcium Level 8.8 mg/dL Total Bilirubin 0.9 mg/dL Aspartate Amino Transf (AST/SGOT) 13 U/L Alanine Aminotransferase (ALT/SGPT) 16 U/L Alkaline Phosphatase 43 U/L Total Protein 7.6 g/dL Albumin 4.1 g/dL Albumin/Globulin Ratio 1.2 Lipase 92 U/L Current Medications Medications (Trade) Dose Ordered Sig/Crissy Route PRN Reason Start Time Stop Time Status Last Admin Dose Admin Ketorolac Tromethamine (Toradol 15mg Vial) 15 mg 1X ONCE IVP 01/29/20 15:15 01/29/20 15:16 DC 01/29/20 15:23 Ondansetron HCl (Zofran) 4 mg 1X ONCE IVP 01/29/20 15:15 01/29/20 15:16 DC 01/29/20 15:22 Sodium Chloride 1,000 ml @ 1,000 mls/hr 1X ONCE IV 01/29/20 15:15 01/29/20 16:14 DC 01/29/20 15:19 Morphine Sulfate (Morphine Sulfate) 4 mg 1X ONCE IV 01/29/20 16:45 01/29/20 16:46 Vital Signs: Vital Signs Date Time Temp Pulse Resp B/P (MAP) Pulse Ox O2 Delivery O2 Flow Rate FiO2 01/29/20 14:58 20 121/85 (97) Room Air EKG: EKG: [] Radiology/Procedures: Radiology/Procedures: [][facility] [address] [place] [address] IMAGING REPORT Signed PATIENT: ALMA DEJESUS ACCOUNT: [id number] : 1990 LOCATION: ER AGE: 29 SEX: F EXAM STATUS: REG ER ORD. PHYSICIAN: BENJAMÍN JORGE MD REASON: PAIN AFTER INTERCOURSE PROCEDURE: TRANSVAGINAL EXAM: Pelvic sonogram. HISTORY: Pain with intercourse. TECHNIQUE: Transabdominal and transvaginal sonographic imaging of the pelvis was performed. COMPARISON: 10/13/2017 and 01/15/2020. FINDINGS: The uterus measures 9.6 x 4.1 x 4.0 cm. The endometrial stripe measures 10 mm in thickness. The ovaries are normal in size and demonstrate normal blood flow. There is a 3.7 x 3.1 x 2.7 cm complex right ovarian cyst. This appears to be hemorrhagic in etiology. There is a small amount of complex free fluid within the right adnexa. There is nabothian cyst within the cervix. IMPRESSION: 1. 3.7 cm suspected hemorrhagic right ovarian cyst with small amount of surrounding complex right adnexal fluid. 2. Otherwise, relatively unremarkable pelvic sonogram. Electronically signed by: Teresa Islas MD (01/29/2020 4:11 PM) [id number] DICTATED and SIGNED BY: TERESA ISLAS MD DATE: 01/29/20 1611 Course & Med Decision Making: Course & Med Decision Making Pertinent Labs and Imaging studies reviewed. (See chart for details) [] 29-year-old female presents with lower abdominal pain after having intercourse. Work-up reveals a hemorrhagic ovarian cyst. On reassessment at 1640 patient still having pain. Patient will give a dose of pain medicine before discharge. Discussed with patient return precautions and diagnosis and need for follow-up. MIPS measure checked: checked and negative Dragon Disclaimer: Dragon Disclaimer: This electronic medical record was generated, in whole or in part, using a voice recognition dictation system. Departure Departure Impression: Primary Impression: Hemorrhagic ovarian cyst Additional Impression: Pelvic pain Disposition: 01 DC HOME SELF CARE/HOMELESS Condition: STABLE Referrals: UNKNOWN PCP NAME (PCP) CHRISTINE CARRASCO MD 2-3 days Patient Instructions: Ovarian Cyst Additional Instructions: EMERGENCY DEPARTMENT GENERAL DISCHARGE INSTRUCTIONS THANK YOU for coming to [facility] Emergency Department (ED) tod ay and trusting us with your care. We trust that you had a positive experience in our Emergency Department. If you wish to speak to the department Management you can contact the chemistry department chair at . YOUR FOLLOW UP INSTRUCTIONS ARE FOLLOWS: Do you have a private doctor? If you do not have a private doctor, please ask for a resource list of physicians or clinics that may be able to assist you with follow up care. The Emergency Physician has interpreted your x-rays. The X-ray specialist will also review them. If there is a change in the findings you will be notified in 48 hours when at all possible. A lab test or lab culture may have been done, your results will be reviewed and you will be notified if you need a change in treatment. ADDITIONAL INSTRUCTIONS AND INFORMATION Your care today has been supervised by a physician who is specially trained in emergency care. Many problems require more than one evaluation for a complete diagnosis and treatment. We recommend that you schedule your follow up appointment as recommended to ensure complete treatment of your illness or injury. If you are unable to obtain follow up care and continue to have a problem, or if your condition worsens we recommend that you return to the ED. We are not able to safely determine your condition over the phone nor are we able to give sound medical advice over the phone. For these safety reasons, if you call for medical advice we will ask you to come to the ED for further evaluation If you have any questions regarding these discharge instructions please call the ED at . SAFETY INFORMATION In the interest of safety, wellness, and injury prevention; we encourage you to wear your seatbelt, if you smoke; quit smoking, and we encourage your family to use protective helmet for bicycling and other sporting events that present an increased risk for head injury. IF YOUR SYMPTOMS WORSEN OR NEW SYMPTOMS DEVELOP, OR YOU HAVE CONCERNS ABOUT YOUR CONDITION; OR IF YOUR CONDITION WORSENS WHILE YOU ARE WAITING FOR YOUR FOLLOW UP APPOINTMENT; EITHER CONTACT YOUR PRIMARY CARE DOCTOR, THE PHYSICIAN WHOSE NAME AND NUMBER YOU WERE GIVEN, OR RETURN TO THE ED IMMEDIATELY. Scripts Hydrocodone/Apap 5-325 (NORCO 5-325 TABLET) 1 Each Tablet 1-2 EACH PO PRN Q6HRS PRN for PAIN, #15 as needed for pain Prov: BENJAMÍN JORGE MD 01/29/20 BENJAMÍN JORGE MD Jan 29, 2020 15:09
[2020-01-29] MEDS ORDERED: ONDANSETRON PF 4 MG/2 ML VIAL. IVP ONE (15:15)
[2020-01-29] MEDS ORDERED: IV NORMAL SALINE 1000ML BAG 1,000 ML IV ONE (15:15)
[2020-01-29] MEDS ORDERED: KETOROLAC 15 MG/ML VIAL. IVP ONE (15:15)
[2020-01-29 15:20] LABS: BILIRUBIN,URINE NEGATIVE (NEG); CLARITY,URINE CLEAR; COLOR,URINE YELLOW; NITRITE,URINE NEGATIVE (NEG); PROTEIN,URINE NEGATIVE (NEG-TRACE)
[2020-01-29 15:30] LABS: BASO % 1 % (0-3); EOS # 0.1 x10^3/uL (0.0-0.7); EOS % 1 % (0-3); HEMATOCRIT 36.2 % (36.0-47.0); HEMOGLOBIN 12.6 g/dL (12.0-15.5); LYMPH # 1.9 x10^3/uL (1.0-4.8); LYMPH % 28 % (24-48); MEAN CORPUSCULAR HEMOGLOBIN 31 pg (25-35); MEAN CORPUSCULAR HGB CONC 35 g/dL (31-37); MEAN CORPUSCULAR VOLUME 88 fL (79-100); MONO # 0.4 x10^3/uL (0.0-1.1); MONO % 6 % (0-9); NEUT # 4.3 x10^3/uL (1.8-7.7); NEUT % 64 % (31-73); PLATELET COUNT 346 x10^3/uL (140-400); RED BLOOD COUNT 4.09 x10^6/uL (3.50-5.40); RED CELL DISTRIBUTION WIDTH 12.8 % (11.5-14.5); WHITE BLOOD COUNT 6.8 x10^3/uL (4.0-11.0)
[2020-01-29 15:40] LABS: BACTERIA,URINE FEW /HPF (0-FEW); RBC,URINE 0 /HPF (0-2); WBC,URINE OCC /HPF (0-4)
[2020-01-29 15:45] LABS: CALCIUM 8.8 mg/dL (8.5-10.1); CREATININE 0.8 mg/dL (0.6-1.0); GFR 103.3; POTASSIUM 3.8 mmol/L (3.5-5.1)
[2020-01-29 15:47] LABS: ALBUMIN 4.1 g/dL (3.4-5.0); ALBUMIN/GLOBULIN RATIO 1.2 (1.0-1.7); TOTAL BILIRUBIN 0.9 mg/dL (0.2-1.0); TOTAL PROTEIN 7.6 g/dL (6.4-8.2)
--- NOTE | 2020-01-29 16:14 | RAD ---
EXAM: Pelvic sonogram. HISTORY: Pain with intercourse. TECHNIQUE: Transabdominal and transvaginal sonographic imaging of the pelvis was performed. COMPARISON: 10/13/2017 and 01/15/2020. FINDINGS: The uterus measures 9.6 x 4.1 x 4.0 cm. The endometrial stripe measures 10 mm in thickness. The ovaries are normal in size and demonstrate normal blood flow. There is a 3.7 x 3.1 x 2.7 cm complex right ovarian cyst. This appears to be hemorrhagic in etiology. There is a small amount of complex free fluid within the right adnexa. There is nabothian cyst within the cervix. IMPRESSION: 1. 3.7 cm suspected hemorrhagic right ovarian cyst with small amount of surrounding complex right adnexal fluid. 2. Otherwise, relatively unremarkable pelvic sonogram. Electronically signed by: Teresa Miller MD (01/29/2020 4:11 PM) [id number]
[2020-01-29] MEDS ORDERED: MORPHINE SULFATE 4 MG/ML VIAL. IV ONE (16:45)
[2020-01-29] MEDS ORDERED: HYDR-3164 PO (16:50)
[2020-01-29 17:08] VITALS: BP 106/61
== END 2020-01-29 17:26 | disposition home or self-care (01) ==
LOC: ER 14:42
DX: N83.201 Unspecified ovarian cyst, right side (principal); R10.2 Pelvic and perineal pain; F41.9 Anxiety disorder, unspecified; Z98.890 Other specified postprocedural states; Z98.51 Tubal ligation status
CPT/HCPCS: 36415; 76830; 80053; 81001; 81025; 83690; 85025; 87086; 96361; 96374; 96375; 99285; J1885; J2270; J2405; J7030

== ENCOUNTER 2020-09-15 02:58 | Emergency (ER) | payer OTHER ==
[~2020-09-15] VITALS: Ht 162.6 cm; Wt 63.0 kg
[~2020-09-15 02:58] MED LIST changes: +HYDR-3164 PO
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
[2020-09-15] MEDS ORDERED: ACETAMINOPHEN 500 MG TABLET PO ONE (03:45)
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
[2020-09-15 05:02] VITALS: BP 90/58
== END 2020-09-15 05:20 | disposition home or self-care (01) ==
LOC: ER 02:58
DX: R51.9 Headache, unspecified (principal); M25.511 Pain in right shoulder; M25.531 Pain in right wrist; M25.532 Pain in left wrist; M79.642 Pain in left hand; M79.641 Pain in right hand; R07.89 Other chest pain; M54.2 Cervicalgia; Y08.89XA Assault by other specified means, initial encounter; Y93.89 Activity, other specified; Y92.89 Other specified places as the place of occurrence of the external cause; Y99.8 Other external cause status
CPT/HCPCS: 70450; 71045; 72125; 81025; 73130-50; 99285-25

== ENCOUNTER 2021-01-10 14:45 | Emergency (ER) | payer BC, OTHER ==
[~2021-01-10] VITALS: Ht 162.6 cm; Wt 66.0 kg
[2021-01-10] MEDS ORDERED: IV NORMAL SALINE 1000ML BAG 1,000 ML IV SCH (15:30)
[2021-01-10 15:33] LABS: BILIRUBIN,URINE NEGATIVE (NEG); CLARITY,URINE CLEAR; COLOR,URINE YELLOW; NITRITE,URINE NEGATIVE (NEG); PH,URINE 6.5 (<5.0-8.0); PROTEIN,URINE NEGATIVE (NEG-TRACE); UROBILINOGEN,URINE 0.2 mg/dL (0.2 mg/dL)
[2021-01-10 15:55] LABS: BACTERIA,URINE 0 /HPF (0-FEW); RBC,URINE OCC /HPF (0-2); WBC,URINE 0 /HPF (0-4)
--- NOTE | 2021-01-10 15:59 | PHYS DOC ---
Past Medical History Past Medical History: Anxiety, Ectopic Additional Past Medical Histor: Irregular vaginal bleeding (ADELINA GRUBER MANAGER TRANSITION) Past Surgical History: Additional Past Surgical Histo: x3 c-sections, D&C tubal ligation with vieira clips removed (ADELINA GRUBER MANAGER TRANSITION) Smoking Status: Never Smoker Alcohol Use: Occasionally Drug Use: None (ADELINA GRUBER MANAGER TRANSITION) General Adult EDM: Chief Complaint: VAGINAL PROBLEM HPI: HPI: Patient is a 30 year old female who presents with reversal for tubal ligation 2 months ago at [facility] with clips removed. Now for the last 3 weeks she has had lower abdominal cramping that is intermittent. She states that she has had ovarian cyst in the past and this is what it feels like. She states more of a pressure type discomfort. She states she also gets some sharp pains in her back from time to time. She rates her discomfort at a 6 out of 10. She took Tylenol earlier this morning. She denies fever, urinary symptoms, nausea, vomiting, diarrhea, chest pain, shortness of breath, headache, dizziness, body aches, abnormal vaginal discharge, concern for STD. She has a history of ovarian cysts, 3 C-sections and an ectopic . (ADELINA GRUBER MANAGER TRANSITION) Review of Systems: Review of Systems: Constitutional: Denies fever or chills. [] Eyes: Denies change in visual acuity. [] HENT: Denies nasal congestion or sore throat. [] Respiratory: Denies cough or shortness of breath. [] Cardiovascular: Denies chest pain or edema. [] GI: + abdominal pain, denies nausea, vomiting, bloody stools or diarrhea. [] : Denies dysuria. [] Musculoskeletal: + Bilateral lower back pain or denies joint pain. [] Integument: Denies rash. [] Neurologic: Denies headache, focal weakness or sensory changes. [] Endocrine: Denies polyuria or polydipsia. [] Lymphatic: Denies swollen glands. [] Psychiatric: Denies depression or anxiety. [] (ADELINA GRUBER MANAGER TRANSITION) Heart Score: C/O Chest Pain: No (ADELINA GRUBER APRN) Current Medications: Current Medications Medications (Trade) Dose Ordered Sig/Crissy Start Time Stop Time Status Last Admin Dose Admin Info (CONTRAST GIVEN -- Rx MONITORING) 1 each PRN DAILY PRN 01/10/21 16:00 01/12/21 15:59 Iohexol (Omnipaque 300 Mg/ml) 75 ml 1X ONCE 01/10/21 15:45 01/10/21 15:46 DC Ketorolac Tromethamine (Toradol 30mg Vial) 30 mg 1X ONCE 01/10/21 15:30 01/10/21 15:31 DC Sodium Chloride 1,000 ml @ 1,000 mls/hr Q1H 01/10/21 15:30 01/10/21 16:29 (ADELINA GRUBER APRN) Allergies: Allergies: Allergies Coded Allergies Type Severity Reaction Last Updated Verified No Known Drug Allergies 12/28/13 No (ADELINA GRUBER APRN) Physical Exam: PE: Constitutional: Well developed, well nourished, no acute distress, non-toxic appearance. [] HENT: Normocephalic, atraumatic, bilateral external ears normal, oropharynx moist, no oral exudates, nose normal. [] Eyes: PERRLA, EOMI, conjunctiva normal, no discharge. [] Neck: Normal range of motion, no tenderness, supple, no stridor. [] Cardiovascular:Heart rate regular rhythm, no murmur [] Lungs & Thorax: Bilateral breath sounds clear to auscultation [] Abdomen: Bowel sounds normal, soft, no tenderness, no masses, no pulsatile masses. [] Skin: Warm, dry, no erythema, no rash. [] Back: No tenderness, no CVA tenderness. [] Extremities: No tenderness, no cyanosis, no clubbing, ROM intact, no edema. [] Neurologic: Alert and oriented X 3, normal motor function, normal sensory function, no focal deficits noted. [] Psychologic: Affect normal, judgement normal, mood normal. [] Normal physical exam (ADELINA GRUBER APRN) Current Patient Data: Labs: Laboratory Tests Test 01/10/21 15:04 POC Urine HCG, Qualitative Hcg negative (Negative) (ADELINA GRUBER APRN) EKG: EKG: [] (ADELINA GRUBER APRN) Radiology/Procedures: Radiology/Procedures: [] Impression: [facility] [address] [place] [address] IMAGING REPORT Signed PATIENT: ALMA DEJESUS ACCOUNT: [id number] : 1990 LOCATION: ER AGE: 30 SEX: F EXAM STATUS: REG ER ORD. PHYSICIAN: ADELINA GRUBER APRN REASON: abdominal pain, tubal ligation reversal 2 months ago PROCEDURE: CT ABD PELV W/ IV CONTRST ONLY Exam: CT of abdomen and pelvis with contrast INDICATION: Abdominal pain TECHNIQUE: Sequential axial images through the abdomen and pelvis obtained following the administration of 74 mL of Isovue-370 IV contrast. Sagittal and coronal reformatted images were reconstructed from the axial data and reviewed. Exposure: One or more of the following in the visualized dose reduction techniques were utilized for this examination: 1. Automated exposure control 2. Adjustment of the MA and/or KV according to patient size 3. Use of iterative of reconstructive technique Comparisons: None FINDINGS: Heart size is normal. No pericardial effusion. Visualized lung bases are clear. No pleural effusion. Liver, spleen, pancreas, and adrenals are unremarkable. Gallbladder is decompressed. No perinephric inflammation or hydronephrosis. No renal or ureteral calculi are identified. Bladder is decompressed not well evaluated. Uterus is not enlarged. No abnormal adnexal mass. Large amount of stool is noted in the colon. Appendix is is normal. No free intra-abdominal air or fluid. No obstruction. Abdominal aorta has normal course and caliber. Abdominal vasculature is patent. No enlarged intra-abdominal lymph nodes are identified. No suspicious osseous lesions or acute fractures. IMPRESSION: No acute process identified within the abdomen or pelvis Electronically signed by: Mir Rodgers MD (01/10/2021 5:26 PM) [facility] DICTATED and SIGNED BY: MIR RODGERS MD DATE: 01/10/21 [id number] (ADELINA GRUBER APRN) Course & Med Decision Making: Course & Med Decision Making Pertinent Labs and Imaging studies reviewed. (See chart for details) See HPI. Alert and oriented x4. Ambulatory steady gait. Speaks in full clear sentences. No CVA tenderness. Abdomen soft and nontender. [] (ADELINA GRUBER APRN) Course & Med Decision Making I have participated in the care of this patient and I have reviewed and agree with all pertinent clinical information above including history, exam, and adri mmendations. (LANA SIU DO) Dragon Disclaimer: Dragmalcolm Disclaimer: This electronic medical record was generated, in whole or in part, using a voice recognition dictation system. (ADELINA GRUBER APRN) Departure Departure Impression: Primary Impression: Constipation Qualified Codes: K59.00 - Constipation, unspecified Disposition: HOME / SELF CARE / HOMELESS Condition: STABLE Referrals: NO PCP (PCP) Patient Instructions: Constipation, Adult Additional Instructions: Drink plenty of fluid. Follow-up with your primary care provider. Take medication as prescribed. If you begin having diarrhea stop the medication. Scripts Polyethylene Glycol 3350 (MIRALAX) 17 Gm Powd.pack 1 PACKET PO DAILY for constipation for 5 Days, #5 PACKET 0 Refills dissolve in water Prov: ADELINA GRUBER APRN 01/10/21 ADELINA GRUBER APRN Jan 10, 2021 15:59 LANA SIU DO Jan 10, 2021 17:50
[2021-01-10] MEDS ORDERED: CONTRAST GIVEN. MC PRN (16:00)
[2021-01-10] MEDS: KETOROLAC 30 MG/ML VIAL. IVP ONE (16:07)
[2021-01-10 16:12] LABS: BASO # 0.1 x10^3/uL (0.0-0.2); BASO % 1 % (0-3); EOS # 0.1 x10^3/uL (0.0-0.7); EOS % 2 % (0-3); HEMOGLOBIN 11.8 g/dL (12.0-15.5); LYMPH # 2.4 x10^3/uL (1.0-4.8); LYMPH % 35 % (24-48); MEAN CORPUSCULAR HEMOGLOBIN 31 pg (25-35); MEAN CORPUSCULAR HGB CONC 35 g/dL (31-37); MEAN CORPUSCULAR VOLUME 88 fL (79-100); MONO # 0.5 x10^3/uL (0.0-1.1); MONO % 7 % (0-9); NEUT # 3.8 x10^3/uL (1.8-7.7); NEUT % 55 % (31-73); PLATELET COUNT 368 x10^3/uL (140-400); RED BLOOD COUNT 3.85 x10^6/uL (3.50-5.40); RED CELL DISTRIBUTION WIDTH 12.9 % (11.5-14.5); WHITE BLOOD COUNT 6.8 x10^3/uL (4.0-11.0)
[2021-01-10] MEDS: IV NORMAL SALINE 1000ML BAG 1,000 ML IV ONE (16:20)
[2021-01-10 16:42] LABS: CALCIUM 8.5 mg/dL (8.5-10.1); CREATININE 0.8 mg/dL (0.6-1.0); GFR 102.6; POTASSIUM 3.9 mmol/L (3.5-5.1)
[2021-01-10 16:51] LABS: ALBUMIN 3.4 g/dL (3.4-5.0); ALBUMIN/GLOBULIN RATIO 1.1 (1.0-1.7); TOTAL BILIRUBIN 0.2 mg/dL (0.2-1.0); TOTAL PROTEIN 6.4 g/dL (6.4-8.2)
[2021-01-10] MEDS: IOHEXOL 300 MG/ML 100ML VIAL. IV ONE (16:55)
--- NOTE | 2021-01-10 17:28 | RAD ---
Exam: CT of abdomen and pelvis with contrast INDICATION: Abdominal pain TECHNIQUE: Sequential axial images through the abdomen and pelvis obtained following the administrati on of 74 mL of Isovue-370 IV contrast. Sagittal and coronal reformatted images were reconstructed fro m the axial data and reviewed. Exposure: One or more of the following in the visualized dose reduction techniques were utilized for this examination: 1. Automated exposure control 2. Adjustment of the MA and/or KV according to patient size 3. Use of iterative of reconstructive technique Comparisons: None FINDINGS: Heart size is normal. No pericardial effusion. Visualized lung bases are clear. No pleural effusion. Liver, spleen, pancreas, and adrenals are unremarkable. Gallbladder is decompressed. No perinephric inflammation or hydronephrosis. No renal or ureteral calculi are identified. Bladder is decompressed not well evaluated. Uterus is not enlarged. No abnormal adnexal mass. Large amount of stool is noted in the colon. Appendix is is normal. No free intra-abdominal air or fl uid. No obstruction. Abdominal aorta has normal course and caliber. Abdominal vasculature is patent. No enlarged intra-abdominal lymph nodes are identified. No suspicious osseous lesions or acute fractures. IMPRESSION: No acute process identified within the abdomen or pelvis Electronically signed by: Mir Garibay MD (01/10/2021 5:26 PM) [facility]
[2021-01-10] MEDS ORDERED: POLY17PO29 PO (17:33)
[2021-01-10] MEDS: SENNOSIDES/DOCUSATE 8.6/50MG TABLET. PO ONE (17:45)
[2021-01-10 17:49] VITALS: BP 100/62
== END 2021-01-10 17:51 | disposition home or self-care (01) ==
LOC: ER 14:45
DX: K59.00 Constipation, unspecified (principal); M54.59 Other low back pain; F41.9 Anxiety disorder, unspecified; Z98.890 Other specified postprocedural states; Z98.51 Tubal ligation status
CPT/HCPCS: 36415; 74177; 80053; 81001; 81025; 83690; 85025; 96361; 96374; 99285; J1885; J7030; Q9967

== ENCOUNTER 2021-03-08 18:24 | Emergency (ER) | payer BC, OTHER ==
[~2021-03-08] VITALS: Ht 162.6 cm; Wt 67.3 kg
[~2021-03-08 18:24] MED LIST changes: +POLY17PO29 PO
--- NOTE | 2021-03-08 19:45 | PHYS DOC ---
Past Medical History Past Medical History: Anxiety, Ectopic Additional Past Medical Histor: Irregular vaginal bleeding (ERICK HER DECORATIVE GREENS CUTTER) Past Surgical History: , Tubal ligation Additional Past Surgical Histo: x3 c-sections, D&C, TUBAL REVERSAL (ERICK HER DECORATIVE GREENS CUTTER) Smoking Status: Never Smoker Alcohol Use: None Drug Use: None (ERICK HER APRN) General Adult EDM: Chief Complaint: ABDOMINAL PAIN IN HPI: HPI: Patient is a 30 year old female who presents with lower abdominal pain with . Patient states she was seen at on Sunday and had an ultrasound and hCG quant level drawn. Patient was referred to her OB office to have second level drawn 48 hours later. Patient reports level continued to rise. Patient's reporting lower abdominal pain has increased today. Denies bleeding, pain with urination, vaginal discharge or odor. Patient had tubal ligation reversed in October. Patient's been taking Clomid and estradiol. LMP 02/14. Currently sees Dr. Ellen Thorne at [facility]. GP, P3. Patient has a history of ectopic , anxiety. Denies all other health history. (ERICK HER DECORATIVE GREENS CUTTER) Review of Systems: Review of Systems: ROS At least 10 ROS systems have been reviewed and are negative except as documented in the HPI. General: Negative except as outlined in HPI above. Skin: Negative except as outlined in HPI above. HEENT: Negative except as outlined in HPI above. Neck: Negative except as outlined in HPI above. Respiratory: Negative except as outlined in HPI above.. Cardiovascular: Negative except as outlined in HPI above. Abdomen: Negative except as outlined in HPI above. : Negative except as outlined in HPI above. Back/MSK: Negative except as outlined in HPI above. Neuro: Negative except as outlined in HPI above. Psych: Negative except as outlined in HPI above. (ERICK HER DECORATIVE GREENS CUTTER) Heart Score: C/O Chest Pain: No Risk Factors: Risk Factors: DM, Current or recent (<one month) smoker, HTN, HLP, family history of CAD, obesity. Risk Scores: Score 0 - 3: 2.5% MACE over next 6 weeks - Discharge Home Score 4 - 6: 20.3% MACE over next 6 weeks - Admit for Clinical Observation Score 7 - 10: 72.7% MACE over next 6 weeks - Early Invasive Strategies (ERICK HER APRN) Allergies: Allergies: Allergies Coded Allergies Type Severity Reaction Last Updated Verified No Known Drug Allergies 12/28/13 No (ERICK HER APRN) Physical Exam: PE: Constitutional: Well developed, well nourished, no acute distress, non-toxic appearance. [] HENT: Normocephalic, atraumatic, bilateral external ears normal, oropharynx moist, no oral exudates, nose normal. [] Eyes: PERRLA, EOMI, conjunctiva normal, no discharge. [] Neck: Normal range of motion, no tenderness, supple, no stridor. [] Cardiovascular:Heart rate regular rhythm, no murmur [] Lungs & Thorax: Bilateral breath sounds clear to auscultation [] Abdomen: Bowel sounds normal, soft, no tenderness, no masses, no pulsatile masses. [] Skin: Warm, dry, no erythema, no rash. [] Back: No tenderness, no CVA tenderness. [] Extremities: No tenderness, no cyanosis, no clubbing, ROM intact, no edema. [] Neurologic: Alert and oriented X 3, normal motor function, normal sensory fu nction, no focal deficits noted. [] Psychologic: Affect normal, judgement normal, mood normal. [] (ERICK HER APRN) Current Patient Data: Labs: Laboratory Tests Test 03/08/21 19:23 POC Urine HCG, Qualitative Hcg negative (Negative) Vital Signs: Vital Signs Date Time Temp Pulse Resp B/P (MAP) Pulse Ox O2 Delivery O2 Flow Rate FiO2 03/08/21 19:15 97.9 83 15 110/56 (74) 100 Room Air 97.9 (ERICK HER APRN) EKG: EKG: [] (ERICK HER APRN) Radiology/Procedures: Radiology/Procedures: [] (ERICK HER APRN) Course & Med Decision Making: Course & Med Decision Making Pertinent Labs and Imaging studies reviewed. (See chart for details) [] 30-year-old female presents with lower abdominal pain and . Patient is currently taking Clomid and estradiol.Patient had a tubal ligation, reversal in October. LMP 1115. Patient denies bleeding, vaginal odor, dysuria. Work-up in ER consist of labs, UA, urine , quant, blood type, transvaginal ultrasound. Previous blood bank draw shows patient is A+. Urinalysis negative for infection. Patient report given to ABAD Lizama (ERICK HER APRN) Course & Med Decision Making Received patient in signout from NISA. Reviewed note as above and agree with documentation. Patient is getting Clomid treatments for fertility. Had a positive serum hCG that was increasing from 1 to 2, then to 5 last week presenting with abd cramping. Serum hCG today is undetectable. No IUP identified. Corpus luteum cyst and hemorrhagic cyst identified in the ovary. No evidence of ectopic. There was pelvic fluid that was thought to be physiologic by the radiologist. Vital signs remained stable. I discussed the findings with the patient, stating is a likely miscarriage. I asked her to follow-up with her stereotyper helper. Return precautions for abdominal pain, syncope, lightheadedness, shortness of breath, or chest pain were discussed. (SHAWNA CROCKETT MD) Dragon Disclaimer: Dragon Disclaimer: This electronic medical record was generated, in whole or in part, using a voice recognition dictation system. (ERICK HER APRN) Departure Departure Impression: Primary Impression: Miscarriage Disposition: HOME / SELF CARE / HOMELESS Condition: STABLE Referrals: NO PCP (PCP) Additional Instructions: Please call your elastic assembler tomorrow to schedule an appointment. Please return to the emergency department immediately if you have severe abdominal pain, feel lightheaded or like you to pass out, have shortness of breath, or chest pain. It appears that you may have had a miscarriage, but this will need to be followed up by your ENVELOPE MACHINE OPERATOR. ERICK HER APRN Mar 08, 2021 19:45 SHAWNA CROCKETT MD Mar 09, 2021 00:27
[2021-03-08 19:52] LABS: BILIRUBIN,URINE NEGATIVE (NEG); CLARITY,URINE CLEAR; COLOR,URINE YELLOW; NITRITE,URINE NEGATIVE (NEG); PROTEIN,URINE NEGATIVE (NEG-TRACE); UROBILINOGEN,URINE 0.2 mg/dL (0.2 mg/dL)
[2021-03-08 20:04] LABS: RBC,URINE RARE /HPF (0-2)
[2021-03-08 20:30] LABS: CALCIUM 8.5 mg/dL (8.5-10.1); CREATININE 0.7 mg/dL (0.6-1.0); GFR 119.7; POTASSIUM 4.4 mmol/L (3.5-5.1)
[2021-03-08 20:39] LABS: BACTERIA,URINE FEW /HPF (0-FEW)
[2021-03-08 22:07] LABS: BASO % 1 % (0-3); EOS # 0.1 x10^3/uL (0.0-0.7); EOS % 2 % (0-3); HEMATOCRIT 35.7 % (36.0-47.0); HEMOGLOBIN 12.2 g/dL (12.0-15.5); LYMPH # 3.1 x10^3/uL (1.0-4.8); LYMPH % 35 % (24-48); MEAN CORPUSCULAR HEMOGLOBIN 30 pg (25-35); MEAN CORPUSCULAR HGB CONC 34 g/dL (31-37); MEAN CORPUSCULAR VOLUME 87 fL (79-100); MONO # 0.6 x10^3/uL (0.0-1.1); MONO % 7 % (0-9); NEUT % 56 % (31-73); PLATELET COUNT 358 x10^3/uL (140-400); RED BLOOD COUNT 4.09 x10^6/uL (3.50-5.40); RED CELL DISTRIBUTION WIDTH 12.5 % (11.5-14.5); WHITE BLOOD COUNT 8.9 x10^3/uL (4.0-11.0)
--- NOTE | 2021-03-08 22:32 | RAD ---
EXAM: ULTRASOUND PELVIS INDICATION: Lower abdominal pain. COMPARISON: 01/29/2020 TECHNIQUE: Transabdominal and transvaginal sonography was performed. FINDINGS: The uterus measures 8.1 x 5.3 x 4.3 cm. Endometrial thickness of 0.7 cm. The right ovary measures 4 x 4 by 2.2 cm and the left ovary 5.7 x 5 x 3 cm. No focal uterine parenchymal abnormality. No fluid along the endometrial canal. Doppler flow is maintained to both ovaries. Well marginated right ovarian cystic focus measuring up t o 1.8 cm with low-level internal echoes and no significant internal or peripheral Doppler flow. A mor e solid/dense rounded focus at the right ovary measuring up to 2.1 cm with a periphery of Doppler wandy w. Crenulated cystic structure with low-level internal echoes within the left ovary measures up to 1. 9 cm without internal Doppler flow. Similar to the right ovary, more solid/dense rounded focus within the left ovary with peripheral Doppler flow measures up to 1.9 cm. Bilateral ovarian follicles. Small/moderate volume free pelvic fluid appearing relatively simple. IMPRESSION: 1. Unremarkable uterus and endometrium. 2. Bilateral ovarian cystic foci with low level internal echoes and no significant Doppler flow measu ring up to 1.8 cm on the right and 1.9 cm on the left. Hemorrhagic cysts are favored. More dense cyst ic foci bilaterally with peripheral Doppler flow measuring up to 2.1 cm on the right and 1.9 cm on th e left with an ultrasound appearance frequently seen with corpus luteal cysts. Several follicles on b oth sides. As deemed necessary such as if there is persistent pain, follow-up ultrasound could be per formed during a different stage in the menstrual cycle to confirm stability or resolution. Normal Dop pler flow is maintained to both ovaries. 3. Small/moderate volume free pelvic fluid which appears relatively simple and could be physiologic. Electronically signed by: AKUA SPAULDING MD (03/08/2021 10:30 PM) [facility]
[2021-03-09 00:21] VITALS: BP 103/56
== END 2021-03-09 00:30 | disposition home or self-care (01) ==
LOC: ER 18:24
DX: O03.9 Complete or unspecified spontaneous abortion without complication (principal); Z98.51 Tubal ligation status
CPT/HCPCS: 36415; 76830; 76856; 80048; 81001; 81025; 84702; 85025; 99284-25

== ENCOUNTER 2021-07-28 21:39 | Emergency (ER) | payer BC, OTHER ==
[~2021-07-28] VITALS: Ht 162.6 cm; Wt 67.5 kg
[2021-07-28 22:42] LABS: BACTERIA,URINE FEW /HPF (0-FEW); RBC,URINE RARE /HPF (0-2)
--- NOTE | 2021-07-28 22:42 | PHYS DOC ---
Past Medical History Past Medical History: Anxiety, Ectopic Additional Past Medical Histor: Irregular vaginal bleeding Past Surgical History: , Tubal ligation Additional Past Surgical Histo: Tubal reversal Smoking Status: Never Smoker Alcohol Use: Occasionally Drug Use: None General Adult EDM: Chief Complaint: PAIN ON URINATION HPI: HPI: Patient is a 31 year old female who presents with patient states for the about the last week she has had thick white vaginal discharge, burning with urination and bilateral flank pain. She rates her pain a 6 out of 10. States he has not been taking any medications for it. She states that she could possibly have an STD but is unsure. She states she has low mid abdominal pain. Denies fever, body aches, chills, chest pain, shortness of breath, headache, dizziness, rash, diarrhea, nausea, vomiting. Patient has a history of 3 C-sections, reversal of tubal ligation, tubal ligation, irregular menstrual cycles, ectopic and anxiety. Review of Systems: Review of Systems: Constitutional: Denies fever or chills. [] Eyes: Denies change in visual acuity. [] HENT: Denies nasal congestion or sore throat. [] Respiratory: Denies cough or shortness of breath. [] Cardiovascular: Denies chest pain or edema. [] GI: + abdominal pain, denies nausea, vomiting, bloody stools or diarrhea. [] : + dysuria. [] Musculoskeletal: Denies back pain or joint pain. [] Integument: Denies rash. [] Neurologic: Denies headache, focal weakness or sensory changes. [] Endocrine: Denies polyuria or polydipsia. [] Lymphatic: Denies swollen glands. [] Psychiatric: Denies depression or anxiety. [] Heart Score: C/O Chest Pain: No Allergies: Allergies: Allergies Coded Allergies Type Severity Reaction Last Updated Verified No Known Drug Allergies 07/28/21 No Physical Exam: PE: Constitutional: Well developed, well nourished, no acute distress, non-toxic appearance. [] HENT: Normocephalic, atraumatic, bilateral external ears normal, oropharynx moist, no oral exudates, nose normal. [] Eyes: PERRLA, EOMI, conjunctiva normal, no discharge. [] Neck: Normal range of motion, no tenderness, supple, no stridor. [] Cardiovascular:Heart rate regular rhythm, no murmur [] Lungs & Thorax: Bilateral breath sounds clear to auscultation [] Abdomen: Bowel sounds normal, soft, low mid tenderness, no masses, no pulsatile masses. [] Skin: Warm, dry, no erythema, no rash. [] Back: No tenderness, no CVA tenderness. [] Extremities: No tenderness, no cyanosis, no clubbing, ROM intact, no edema. [] Neurologic: Alert and oriented X 3, normal motor function, normal sensory function, no focal deficits noted. [] Psychologic: Affect normal, judgement normal, mood normal. [] Current Patient Data: Labs: Laboratory Tests Test 07/28/21 22:28 POC Urine HCG, Qualitative Hcg negative (Negative) Microbiology 07/28/21 Wet Prep - Final, Complete Vital Signs: Vital Signs Date Time Temp Pulse Resp B/P (MAP) Pulse Ox O2 Delivery O2 Flow Rate FiO2 07/28/21 21:45 98.7 85 20 115/72 (86) 100 Room Air 98.7 EKG: EKG: [] Radiology/Procedures: Radiology/Procedures: [] Impression: [facility] [address] [place] [address] IMAGING REPORT Signed PATIENT: ALMA DEJESUS ACCOUNT: [id number] : 1990 LOCATION: ER AGE: 31 SEX: F EXAM STATUS: REG ER ORD. PHYSICIAN: ADELINA GRUBER APRN REASON: DISCHARGE, PAIN WITH URINATION, FLANK PAIN, BLOOD IN URINE PROCEDURE: CT ABDOMEN PELVIS WO CONTRAST Study: CT abdomen/pelvis without intravenous contrast Indication: Discharge. Pain with urination. Flank pain. Hematuria. Comparison: 01/10/2021 Technique: Helical CT imaging performed of the abdomen and pelvis without the use of intravenous contrast. Sagittal and coronal reformats were obtained. One or more of the following individualized dose reduction techniques were utilized for this examination: 1. Automated exposure control 2. Adjustment of the mA and/or kV according to patient size 3. Use of iterative reconstruction technique. Findings: Inherently limited evaluation without intravenous contrast. Unremarkable visualized lungs and mediastinal contents. The liver is unchanged and again noted to be at the upper limits of normal for size. Within normal limits gallbladder, biliary tree, pancreas and spleen. No perinephric or periureteral edema. No hydronephrosis. Normal bladder wall thickness. The CT appearance of the uterus and ovaries are within normal limits. Mild volume colonic stool burden. Normal appendix. Unremarkable small bowel and stomach. Nonaneurysmal abdominal aorta. No lymphadenopathy. No free fluid or pneumoperitoneum. Redemonstration of metallic densities at the ventral lower abdomen below the umbilicus. No significant new osseous finding. Impression: 1. No acute abnormality identified throughout the abdomen or pelvis. No significant change from 01/10/2021. 2. Mild degree of constipation. Electronically signed by: AKUA SPAULDING MD (07/28/2021 11:37 PM) [facility] DICTATED and SIGNED BY: AKUA SPAULDING MD DATE: 07/28/212330 Course & Med Decision Making: Course & Med Decision Making Pertinent Labs and Imaging studies reviewed. (See chart for details) See HPI. Alert and oriented x4. Ambulatory steady gait. Skin pink warm and dry. No CVA tenderness. Low mid abdominal pain with palpation. White vaginal discharge. Speaks in full clear sentences. Afebrile. Pelvic Exam: Computer Artist present Abdomen: Nontender External Genitalia: Normal Skin Speculum: Normal vaginal mucosa, normal cervical discharge Bimanual: No adnexal masses or tenderness, No CMT Wet prep came back positive for bacterial vaginosis and yeast. I gave her Diflucan in the ED. Urinalysis shows infection. I gave her 1 g of Rocephin IV x1 in the ED. CT abdomen pelvis shows constipation. Patient will be sent home on metronidazole and cefdinir. [] Dragon Disclaimer: Dragon Disclaimer: This electronic medical record was generated, in whole or in part, using a voice recognition dictation system. Departure Departure Impression: Primary Impression: Bacterial vaginosis Additional Impressions: UTI (urinary tract infection) Qualified Codes: N30.00 - Acute cystitis without hematuria Constipation Qualified Codes: K59.00 - Constipation, unspecified Yeast infection Disposition: HOME / SELF CARE / HOMELESS Condition: STABLE Referrals: NO PCP (PCP) JOSE A LANDIS MD Patient Instructions: Bacterial Vaginosis, Constipation, Adult, Urinary Tract Infection, Yeast Infection of the Skin, [id number] Additional Instructions: Follow-up with primary care provider next week. Take medication as prescribed with food. You will be called in 48 hours only if your chlamydia or gonorrhea comes back positive. Drink plenty of fluids to help flush your kidneys and stay hydrated. Make sure you complete the medication. Scripts Fluconazole (DIFLUCAN) 150 Mg Tablet 1 TAB PO ONCE, #1 TAB TAKE AFTER YOU FINISH ANTIBIOTIC Prov: ADELINA GRUBER APRN 07/28/21 Cefdinir (CEFDINIR) 300 Mg Capsule 1 CAP PO BID, #14 CAP Prov: ADELINA GRUBER APRN 07/28/21 Metronidazole (METRONIDAZOLE) 500 Mg Tablet 1 TAB PO BID for 7 Days, #14 TAB 0 Refills Prov: ADELINA GRUBER APRN 07/28/21 ADELINA GRUBER APRN Jul 28, 2021 22:42
[2021-07-28 22:43] LABS: YEAST,URINE PRESENT /HPF
[2021-07-28] MEDS ORDERED: FLUCONAZOLE 100 MG TABLET. PO ONE (22:45)
[2021-07-28 22:55] LABS: BASO # 0.1 x10^3/uL (0.0-0.2); BASO % 1 % (0-3); EOS # 0.1 x10^3/uL (0.0-0.7); EOS % 1 % (0-3); HEMATOCRIT 35.5 % (36.0-47.0); HEMOGLOBIN 12.1 g/dL (12.0-15.5); LYMPH # 2.2 x10^3/uL (1.0-4.8); LYMPH % 26 % (24-48); MEAN CORPUSCULAR HEMOGLOBIN 30 pg (25-35); MEAN CORPUSCULAR HGB CONC 34 g/dL (31-37); MEAN CORPUSCULAR VOLUME 87 fL (79-100); MONO # 0.6 x10^3/uL (0.0-1.1); MONO % 7 % (0-9); NEUT # 5.4 x10^3/uL (1.8-7.7); NEUT % 65 % (31-73); PLATELET COUNT 386 x10^3/uL (140-400); RED BLOOD COUNT 4.09 x10^6/uL (3.50-5.40); RED CELL DISTRIBUTION WIDTH 12.8 % (11.5-14.5); WHITE BLOOD COUNT 8.3 x10^3/uL (4.0-11.0)
[2021-07-28] MEDS ORDERED: KETOROLAC 15 MG/ML VIAL. IVP ONE (23:00)
[2021-07-28] MEDS ORDERED: cefTRIAXone IV Push 1 GM VIAL. IVP ONE (23:00)
[2021-07-28] MEDS ORDERED: IV NORMAL SALINE 1000ML BAG 1,000 ML IV ONE (23:00)
[2021-07-28 23:05] LABS: CALCIUM 8.8 mg/dL (8.5-10.1); CREATININE 0.8 mg/dL (0.6-1.0); GFR 101.9; POTASSIUM 3.8 mmol/L (3.5-5.1)
[2021-07-28 23:11] LABS: ALBUMIN 3.6 g/dL (3.4-5.0); ALBUMIN/GLOBULIN RATIO 0.9 (1.0-1.7); TOTAL BILIRUBIN 0.5 mg/dL (0.2-1.0); TOTAL PROTEIN 7.7 g/dL (6.4-8.2)
--- NOTE | 2021-07-28 23:39 | RAD ---
Study: CT abdomen/pelvis without intravenous contrast Indication: Discharge. Pain with urination. Flank pain. Hematuria. Comparison: 01/10/2021 Technique: Helical CT imaging performed of the abdomen and pelvis without the use of intravenous cont rast. Sagittal and coronal reformats were obtained. One or more of the following individualized dose reduction techniques were utilized for this examinat ion: 1. Automated exposure control 2. Adjustment of the mA and/or kV according to patient size 3. Use of iterative reconstruction technique. Findings: Inherently limited evaluation without intravenous contrast. Unremarkable visualized lungs and mediastinal contents. The liver is unchanged and again noted to be at the upper limits of normal for size. Within normal li mits gallbladder, biliary tree, pancreas and spleen. No perinephric or periureteral edema. No hydrone phrosis. Normal bladder wall thickness. The CT appearance of the uterus and ovaries are within normal limits. Mild volume colonic stool burden. Normal appendix. Unremarkable small bowel and stomach. Nonaneurysmal abdominal aorta. No lymphadenopathy. No free fluid or pneumoperitoneum. Redemonstration of metallic densities at the ventral lower abdomen below the umbilicus. No significant new osseous finding. Impression: 1. No acute abnormality identified throughout the abdomen or pelvis. No significant change from 12/31. 2. Mild degree of constipation. Electronically signed by: AKUA SPAULDING MD (07/28/2021 11:37 PM) [facility], [place]
[2021-07-28] MEDS ORDERED: CEFD300C PO (23:46)
[2021-07-28] MEDS ORDERED: METR-34 PO (23:46)
[2021-07-28] MEDS ORDERED: FLUC150T PO (23:59)
[2021-07-29 00:05] VITALS: BP 107/65
[2021-07-30 22:08] LABS: GC PROBE Negative (Negative)
== END 2021-07-29 00:10 | disposition home or self-care (01) ==
LOC: ER 21:39
DX: N30.00 Acute cystitis without hematuria (principal); N76.0 Acute vaginitis; B96.89 Other specified bacterial agents as the cause of diseases classified elsewhere; K59.00 Constipation, unspecified; B37.3 Candidiasis of vulva and vagina; Z98.51 Tubal ligation status
CPT/HCPCS: 36415; 74176; 80053; 81001; 81025; 85025; 87086; 87491; 87591; 96361; 96374; 96375; 99285; J0696; J1885; J7030; Q0111